=== PATIENT | male | born 1940 | race African-American/Black ===

== ENCOUNTER → 2016-07-18 | Outpatient (CLI) | payer MEDICARE, OTHER ==
[2016-07-18 12:38] LABS: CH 27.8; CHCM 31.3; HDW 2.35; HGB 12.2 gm/dL (13.0-17.5); MCH 27.9 pg (25.0-35.0); MCHC 31.4 g/dL (31.0-37.0); Mean Platelet Volume 7.8; RBC 4.38 m/uL (4.30-5.90); RDW 13.4 % (11.5-15.5); WBC 11.4 k/uL (3.8-10.6)
[2016-07-18 12:57] LABS: Anion Gap 12 mmol/L; Blood Urea Nitrogen 27 mg/dL (9-20); Carbon Dioxide 22 mmol/L (22-30); Chloride 106 mmol/L (98-107); Non-African American GFR(MDRD) 50 (>60 ml/min/1.73 sqM); Sodium 140 mmol/L (137-145)
== END | disposition home or self-care (01) ==
LOC: LABPAT 12:23
PROVIDERS: ATTEND Internal Medicine Interventional Cardiology
DX: Z01.812 Encounter for preprocedural laboratory examination (principal); I50.22 Chronic systolic (congestive) heart failure
CPT/HCPCS: 80051; 82565; 84520; 85027

== ENCOUNTER 2016-07-25 07:14 | Day surgery (SDC) | payer MEDICARE, OTHER ==
[2016-07-23 14:50] VITALS: BMI 44.3
[~2016-07-25 07:14] MED LIST: ALPRAZolam 0.25 MG TAB PO PRN; ALPRAZolam 0.5 MG TAB PO PRN; ASPIRIN 325 MG TAB PO STA; ATORVASTATIN 80 MG TAB PO STA; NITROGLYCERIN SL TABS 0.4 MG TAB SUBLINGUAL PRN; SODIUM CHLORIDE 0.9% 1,000 ML in EMPTY BAG 1 BAG IV ONE
[2016-07-25] MEDS ORDERED: SODIUM CHLORIDE 0.9% 1,000 ML IV ONE (07:45)
[2016-07-25] MEDS ORDERED: LISINOPRIL 20 MG TAB PO STA (08:02)
[2016-07-25] MEDS ORDERED: HYDROCHLOROTHIAZIDE 25 MG TAB PO STA (08:02)
[2016-07-25 08:12] LABS: Glucose,Whole Blood 125 mg/dL (75-99)
[2016-07-25 08:28] LABS: Anion Gap 13 mmol/L; Blood Urea Nitrogen 23 mg/dL (9-20); Calcium 9.3 mg/dL (8.4-10.2); Carbon Dioxide 20 mmol/L (22-30); Chloride 105 mmol/L (98-107); Glucose 136 mg/dL (74-99); Non-African American GFR(MDRD) 52 (>60 ml/min/1.73 sqM); Potassium 4.6 mmol/L (3.5-5.1); Sodium 138 mmol/L (137-145)
[2016-07-25] MEDS ORDERED: fentaNYL (PF) 50 MCG/ML 2 ML AMP ONE (10:48)
[2016-07-25] MEDS ORDERED: MIDAZOLAM 2 MG/2 ML VIAL ONE (10:48)
[2016-07-25] MEDS: BENZOCAINE SPRAY 100 APPLIC/CAN TOPICAL ONE ×2 (11:09→11:15)
[2016-07-25] MEDS ORDERED: MIDAZOLAM 2 MG/2 ML VIAL IVP ONE ×2 (11:16→11:18)
[2016-07-25] MEDS ORDERED: fentaNYL (PF) 50 MCG/ML 2 ML AMP IV ONE (11:16)
[2016-07-25] MEDS ORDERED: LIDOCAINE 2% INJ 20 MG/ML (20 ML MDV) ONE (11:25)
[2016-07-25] MEDS ORDERED: VERAPAMIL 2.5 MG/ML 2 ML AMP ONE (11:34)
[2016-07-25] MEDS ORDERED: HEPARIN SODIUM 1,000 UNIT/ML VIAL ONE (11:51)
[2016-07-25] MEDS ORDERED: LIDOCAINE 2% INJ 20 MG/ML SQ ONE (11:51)
[2016-07-25] MEDS: VERAPAMIL SYRINGE (5 MG/10 ML) INTRAARTER ONE ×2 (11:53→12:12)
[2016-07-25] MEDS ORDERED: HEPARIN SODIUM 1,000 UNIT/ML VIAL IV ONE (11:54)
[2016-07-25] MEDS ORDERED: IOHEXOL 300 MG/ML 100 ML BOTTLE INJ ONE (12:11)
[2016-07-25] MEDS ORDERED: SODIUM CHLORIDE 0.9% 1,000 ML IV SCH (12:15)
[2016-07-25] MEDS ORDERED: RX INFO: IV CONTRAST WAS GIVEN 1 EACH MISC MISCELLANE PRN (12:15)
[2016-07-25 12:56] VITALS: RESP 16
--- NOTE | 2016-07-25 13:31 | ECHOT ---
DATE OF SERVICE: July 25, 2016. Performing physician: Sean Osman M.D., senior corporate recruiter. PROCEDURE PERFORMED: Transesophageal echocardiogram. INDICATION: This is a pleasant 75-year-old gentleman who was complaining of shortness of breath. He was found to have severe cardiomyopathy with evidence of moderate mitral regurgitation. He was admitted to the hospital to undergo a GLORIA and heart catheterization. COMPLICATIONS: None. Level of sedation: Moderate. Length of sedation: 20 minutes. Conscious sedation was performed using 2 mg of Versed on divided doses with sedation length of 20 minutes. PROCEDURE DESCRIPTION: After obtaining an informed consent, explaining the procedure, benefits, risks, complications and alternatives, the patient was brought to the transesophageal echocardiogram suite. A pulse oximetry and heart rate monitors were attached to the patient prior to the procedure. The patient's throat was sprayed using lidocaine locally. Following that, the patient was turned into left lateral position. A bite guard was placed and the patient was then sedated with the above doses of Versed and fentanyl in divided doses. Following that, the transesophageal echocardiogram probe was advanced through the bite guard into the mid esophagus where 2-D echocardiogram images as well as color Doppler images of various cardiac structures were obtained. We evaluated the interatrial septum using 2-D echocardiogram, color Doppler, and contrast study. The procedure was completed. There were no complications. FINDINGS: The left ventricle appeared to be dilated. The left ventricular systolic function is severely impaired with an ejection fraction around 15 to 20% with global hypokinesia. The right ventricle appeared to be dilated as well. The left atrium appeared to be on the upper limits of normal. Left atrial appendage appeared to be free from any thrombus. The interatrial septum appeared to be intact without any evidence of shunt. The aortic valve is trileaflet valve without stenosis with mild insufficiency. The mitral valve seems to be mildly thickened with evidence of moderate MR. CONCLUSION: 1. Severe cardiomyopathy with an ejection fraction of 15 to 20% with global hypokinesia. 2. Trileaflet aortic valve without stenosis with mild insufficiency. 3. Moderate mitral regurgitation with central jet. 4. Normal left atrial appendage. 5. Intact intra-atrial septum. 6. No evidence of pericardial effusion.
[2016-07-25 13:37] LABS: Glucose,Whole Blood 182 mg/dL (75-99)
[2016-07-25] MEDS ORDERED: INSULIN LISPRO (humaLOG) 300 UNIT/3 ML VIAL SQ ONE (13:37)
[2016-07-25 17:01] LABS: Glucose,Whole Blood 91 mg/dL (75-99)
[2016-07-25 17:26] VITALS: BP 135/72; PULSE 67
--- NOTE | 2016-07-26 08:07 | CC ---
DATE OF SERVICE: 07/25/2016 PERFORMING PHYSICIAN: Sean Osman MD, evidence technician. PROCEDURE PERFORMED: Selective right and left coronary angiogram. INDICATION: This is a pleasant 75-year-old gentleman who was found to have severe cardiomyopathy by transthoracic echocardiogram. He was brought today to undergo a heart catheterization and rule out any severe underlying CAD behind the cardiomyopathy. APPROACH: Right radial artery. COMPLICATIONS: None. LEVEL OF SEDATION: Moderate with a sedation length about 30 minutes. PROCEDURE DESCRIPTION: After obtaining informed consent, the patient was brought to the cardiac malthouse laborer. The right radial artery was cannulated using micropuncture technique. The micropuncture wire passed easily then I placed a 6 Azeri sheath in the right radial artery. After that I give the patient 5000 units of heparin IV and 2 mg of verapamil IA. I did selective right and left coronary angiogram using JR4 guiding catheter for the right coronary system because of the severe tortuosity I had to use a JR4 guide to transmit my ( ). For the left coronary system I used JL 3.5 catheters. The procedure was completed without any complication. SELECTIVE CORONARY ANGIOGRAM: 1. The right coronary artery is a large-caliber vessel and it is a dominant vessel. It is angiographically normal. The flow in the RCA is AKIL 2 flow. 2. The left main is angiographically normal. It bifurcates into the left circumflex, ramus intermedius, and left anterior descending artery. 3. The left circumflex is a large-caliber vessel and it is a nondominant vessel. It is angiographically normal as well. 4. The ramus intermedius is angiographically normal. 5. Left anterior descending artery is also angiographically normal and in the proximal portion gives rise into the first diagonal branch, which appeared to be angiographically normal. CONCLUSION: 1. Normal coronary angiogram. 2. AKIL 2 flow in the right and left coronary system. POSTPROCEDURE MANAGEMENT: 1. Maximize medical treatment. 2. Follow up with the patient.
--- NOTE | 2016-07-26 08:15 | LTR ---
July 25, 2016 RE: Pedro Gaviria Dear Dr. Morgan: Mr. Pedro Gaviria underwent a heart catheterization which showed normal coronary angiogram. For his cardiomyopathy, I will consider maximize medical treatment and repeat the echocardiogram down the line. I want to thank you for allowing me to participate in his care and please do not hesitate to call if you have any questions or concerns. Sincerely, SARIAH TREVINO MD
== END 2016-07-25 17:26 | disposition home or self-care (01) ==
LOC: CATHCVL 07:14
PROVIDERS: ATTEND Internal Medicine Interventional Cardiology
DX: I08.0 Rheumatic disorders of both mitral and aortic valves (principal); I42.9 Cardiomyopathy, unspecified; I77.1 Stricture of artery; I10 Essential (primary) hypertension; E78.5 Hyperlipidemia, unspecified; E66.3 Overweight; Z68.41 Body mass index [BMI] 40.0-44.9, adult; Z87.891 Personal history of nicotine dependence; E11.9 Type 2 diabetes mellitus without complications; Z79.4 Long term (current) use of insulin; Z79.84 Long term (current) use of oral hypoglycemic drugs; Z79.899 Other long term (current) drug therapy
CPT/HCPCS: 93312; 93320; 93325; 93454; 80048; 99152; 99153 ×3; C1769; C1887; C1894; J2001; J2250; J3010; J1644; Q9967

== ENCOUNTER 2017-02-09 09:47 | Day surgery (SDC) | payer MEDICARE, OTHER ==
[2017-02-05 15:37] VITALS: BMI 42.5
[~2017-02-09 09:47] MED LIST changes: -ALPRAZolam 0.25 MG TAB PO PRN; -ALPRAZolam 0.5 MG TAB PO PRN; -ASPIRIN 325 MG TAB PO STA; -ATORVASTATIN 80 MG TAB PO STA; +LACTATED RINGERS 1,000 ML IV SCH; -NITROGLYCERIN SL TABS 0.4 MG TAB SUBLINGUAL PRN; +SODIUM CHLORIDE 0.9% 1,000 ML IV SCH; -SODIUM CHLORIDE 0.9% 1,000 ML in EMPTY BAG 1 BAG IV ONE; +ceFAZolin 1,000 MG in SODIUM CHLORIDE 0.9% IRRIGATIO 250 ML IRRIGATION ONE; +ceFAZolin 2 GM in SODIUM CHLORIDE 0.9% 100 ML IVPB ONE
[2017-02-09 11:03] LABS: Glucose,Whole Blood 133 mg/dL (75-99)
[2017-02-09 11:18] LABS: Basophils % (A) 1 %; Eosinophils # (A) 0.2 k/uL (0-0.7); Eosinophils % (A) 3 %; HCT 40.5 % (39.0-53.0); HGB 12.9 gm/dL (13.0-17.5); Hypochromasia Slight; Luc # (Auto) 0.12; Luc % (Auto) 2; Lymphocytes # (A) 1.8 k/uL (1.0-4.8); Lymphocytes % (A) 25 %; MCH 27.9 pg (25.0-35.0); MCHC 31.9 g/dL (31.0-37.0); MCV 87.5 fL (80.0-100.0); Mean Platelet Volume 7.2; Monocytes # (A) 0.5 k/uL (0-1.0); Monocytes % (A) 7 %; Neutrophils # (A) 4.7 k/uL (1.3-7.7); Neutrophils % (A) 63 %; RBC 4.63 m/uL (4.30-5.90); RDW 13.1 % (11.5-15.5); WBC 7.4 k/uL (3.8-10.6); WBC (Perox) 7.53
[2017-02-09] MEDS ORDERED: SODIUM CHLORIDE 0.9% 1,000 ML IV ONE (11:27)
[2017-02-09] MEDS ORDERED: MIDAZOLAM 2 MG/2 ML VIAL ONE (12:53)
[2017-02-09] MEDS ORDERED: KETAMINE 10 MG/ML 20 ML VIAL ONE (12:53)
[2017-02-09] MEDS ORDERED: LIDOCAINE 1% INJ 10MG/ML (20 ML MDV) ONE (12:53)
[2017-02-09] MEDS ORDERED: PROPOFOL 10 MG/ML 20 ML VIAL IV ONE (12:53)
[2017-02-09] MEDS ORDERED: fentaNYL (PF) 50 MCG/ML 2 ML AMP ONE (12:53)
[2017-02-09] MEDS ORDERED: PHENYLEPHRINE-0.9% NACL SYG 1 MG/10 ML SYRINGE ONE (12:53)
[2017-02-09] MEDS ORDERED: IOHEXOL 350 MG/ML 50ML BOTTLE INJ ONE (13:08)
[2017-02-09] MEDS ORDERED: LIDOCAINE 1% (PF) 10MG/ML VIAL SQ ONE (13:40)
[2017-02-09 15:01] LABS: Glucose,Whole Blood 97 mg/dL (75-99)
[2017-02-09 15:02] VITALS: RESP 18
[2017-02-09 15:02] LABS: Anion Gap 11 mmol/L; Blood Urea Nitrogen 22 mg/dL (9-20); Calcium 9.4 mg/dL (8.4-10.2); Carbon Dioxide 19 mmol/L (22-30); Chloride 107 mmol/L (98-107); Glucose 137 mg/dL (74-99); Non-African American GFR(MDRD) >60 (>60 ml/min/1.73 sqM); Potassium 4.8 mmol/L (3.5-5.1); Sodium 137 mmol/L (137-145)
[2017-02-09] MEDS ORDERED: ACETAMINOPHEN TAB 325 MG TAB PO PRN (15:02)
[2017-02-09] MEDS ORDERED: ACETAMINOPHEN IV (For NPO) 1,000 MG in EMPTY BAG 1 BAG IVPB ONE (15:02)
--- NOTE | 2017-02-09 15:36 | LTR ---
DATE OF SERVICE: 02/09/2017 RE: Pedro Gaviria Dear Srinath; I had the pleasure of seeing Mr. Pedro Gaviria in electrophysiology followup. As you know, Mr. Gaviria has severe cardiomyopathy that has not shown any improvement in the last 6 months, despite appropriate medical treatment. He underwent a single-chamber ICD implantation successfully. I will maximize his beta blockers and increase them to 50 mg twice daily, preferably metoprolol succinate 50 mg p.o. daily. He will continue to follow up with you as scheduled and we will see him again in the Device Clinic in about 5 days. Thank you for entrusting me with the care of your patient. Warm regards. Sincerely, MD HILDA Way / ALVA: [id number] /
--- NOTE | 2017-02-09 15:36 | PN ---
PROGRESS NOTE A 76-year-old male patient with severe nonischemic cardiomyopathy with class 2 heart failure symptoms with no improvement with medical treatment over 6 months. He is brought in for an ICD implantation. The patient is brought to the EP lab in a fasting state. Written informed consent was obtained prior to the procedure. The left shoulder area was prepped and draped as per protocol. 1% lidocaine was used for local anesthesia. A 4 cm incision was made parallel to the deltopectoral groove. A 1.5 cm medial to the incision was carried down to the level of the pectoralis muscle. A subfascial pocket was made, hemostasis was assured. The left axillary vein was accessed with a single point line, appropriately-sized introducer sheath, a [employer] lead was positioned in the right heart. This was an [employer] [place] SG model #0293, serial #[id number]. This is positioned in the low RV septum. R-waves 12.2 mV, pacing threshold 1 V at 0.4 ms. Pacing impedance of 744 ohms. 10 V test is negative. The lead was secured to the underlying pectoralis fascia using 2 nonabsorbable sutures. Pocket was irrigated with antibiotic solution. Lead was connected to the generator ([employer] ICD VR model #D140, serial #[id number]). Lead and the generator were then placed in the subfascial pocket and the wound was closed in 3 layers and dressed per protocol. In view of his cardiomyopathy and heart failure status, DFT testing was deferred. Patient tolerated procedure well without any acute complications. PLAN: Further maximization of cardiomyopathy, medications and beta blockers and DFT testing in 3 months. MMODL / IJN: [id number] /
[2017-02-09 17:08] LABS: Glucose,Whole Blood 111 mg/dL (75-99)
[2017-02-09] MEDS: CARVEDILOL 3.125 MG TAB PO SCH (17:13)
[2017-02-09] MEDS ORDERED: INSULIN LISPRO (humaLOG) 300 UNIT/3 ML VIAL SQ SCH (17:30)
[2017-02-09 20:12] LABS: Glucose,Whole Blood 167 mg/dL (75-99)
[2017-02-09] MEDS: ceFAZolin 2 GM in SODIUM CHLORIDE 0.9% 100 ML IVPB SCH (20:49)
[2017-02-09] MEDS: HYDROcodone/APAP 5-325MG 1 EACH TAB PO PRN (20:53)
[2017-02-09] MEDS ORDERED: INSULIN DETEMIR 100 UNIT/ML 10 ML VIAL SQ SCH (21:00)
[2017-02-09] MEDS ORDERED: ATORVASTATIN 20 MG TAB PO SCH (21:00)
[2017-02-10] MEDS: ceFAZolin 2 GM in SODIUM CHLORIDE 0.9% 100 ML IVPB SCH ×3 (01:35→13:50)
--- NOTE | 2017-02-10 06:35 | XR ---
EXAMINATION TYPE: XR chest 2V DATE OF EXAM: 02/10/2017 COMPARISON: NONE HISTORY: Arrhythmia status post pacemaker placement. TECHNIQUE: Frontal and lateral views of the chest are obtained. FINDINGS: There is no focal air space opacity, pleural effusion, or pneumothorax seen. The cardiac silhouette size is mildly enlarged. Lateral view is suboptimal due to overlying upper extremity. The re is single lead pacemaker/AICD, lead is likely within right ventricle but this is difficult to conf irm due to motion and overlying upper extremity on lateral view. The osseous structures are intact. IMPRESSION: Mild cardiomegaly without acute pulmonary process. Single-lead pacemaker/AICD with suspe cted lead in right ventricle. No evidence of complication related to pacemaker placement.
[2017-02-10 07:08] LABS: Glucose,Whole Blood 122 mg/dL (75-99)
[2017-02-10] MEDS ORDERED: INSULIN LISPRO (humaLOG) 300 UNIT/3 ML VIAL SQ SCH ×2 (07:30→12:30)
[2017-02-10] MEDS: CARVEDILOL 3.125 MG TAB PO SCH (08:14)
--- NOTE | 2017-02-10 08:18 | P.DS ---
Providers Attending physician: Cliff Cantu Primary care physician: Srinath [facility] Course: 76-year-old male patient who underwent single chamber ICD for severe nonischemic cardio myopathy with class II heart failure symptoms and left ejection fraction at 20% despite medical treatment for 6 months he is on by Maria L to medical treatment. He underwent successful ICD implantation single- chamber Patient is doing well. Afebrile no chest pain no dizziness lightheadedness ICD site is healed well no hematoma Vitals are stable. Heart rates are normal. No arrhythmias on telemetry. Heart sounds S1 and S2 are normal no murmurs or gallops. Lungs are clear on auscultation no rhonchi no crackles. Abdomen soft nontender. Central obesity. No lower extremity edema Chest x-ray is within normal limits. Thyromegaly is chronic Impression Severe nonischemic cardiopathy Persistent systolic dysfunction/current myopathy ejection fraction 20% despite medical treatment for at least 6 months Normal coronary arteries Diabetes type 2 Hypertension dyslipidemia Plan Discharge home after IV antibiotics. Stop amlodipine, stop metoprolol tartrate Start Coreg 3.125 g twice daily Lisinopril 20 mg daily Spironolactone 25 mg by mouth daily continue statins Follow-up in the device clinic in 5 days and follow with Dr. Longoria as scheduled Patient Condition at Discharge: Stable Plan - Discharge Summary New Discharge Prescriptions: No Action Tamsulosin HCl [Flomax] 0.4 mg PO HS Lisinopril [Zestril] 30 mg PO DAILY Atorvastatin Calcium [Lipitor] 20 mg PO HS Insulin Detemir [Levemir Flextouch] 95 unit SQ HS Insulin Aspart [NovoLOG] 25 unit SQ AC-SUPPER Insulin Aspart [NovoLOG] 20 unit SQ AC-LUNCH Insulin Aspart [NovoLOG] 10 unit SQ AC-BRKFST amLODIPine [Norvasc] 5 mg PO HS Discharge Medication List Atorvastatin Calcium [Lipitor] 20 mg PO HS 07/23/16 [History] Insulin Aspart [NovoLOG] 10 unit SQ AC-BRKFST 07/23/16 [History] Insulin Aspart [NovoLOG] 20 unit SQ AC-LUNCH 07/23/16 [History] Insulin Aspart [NovoLOG] 25 unit SQ AC-SUPPER 07/23/16 [History] Insulin Detemir [Levemir Flextouch] 95 unit SQ HS 07/23/16 [History] Lisinopril [Zestril] 30 mg PO DAILY 07/23/16 [History] Tamsulosin HCl [Flomax] 0.4 mg PO HS 07/23/16 [History] amLODIPine [Norvasc] 5 mg PO HS 02/05/17 [History]
[2017-02-10] MEDS: HYDROcodone/APAP 5-325MG 1 EACH TAB PO PRN (08:22)
[2017-02-10] MEDS ORDERED: SPIRONOLACTONE 25 MG TAB PO SCH (09:00)
[2017-02-10] MEDS ORDERED: LISINOPRIL 10 MG TAB PO SCH (09:00)
[2017-02-10 12:01] LABS: Glucose,Whole Blood 101 mg/dL (75-99)
[2017-02-10 12:39] VITALS: BP 117/67; PULSE 57; TEMP 97.8
== END 2017-02-10 15:45 | disposition home or self-care (01) ==
LOC: CATHEP 09:47 → 3OBS 14:18 → CATHEP 02-10 15:45
PROVIDERS: ATTEND Internal Medicine Clinical Cardiac Electrophysiology
DX: I42.8 Other cardiomyopathies (principal); Z00.6 Encounter for examination for normal comparison and control in clinical research program; I11.0 Hypertensive heart disease with heart failure; I50.22 Chronic systolic (congestive) heart failure; E11.9 Type 2 diabetes mellitus without complications; Z79.4 Long term (current) use of insulin; E66.3 Overweight; Z68.41 Body mass index [BMI] 40.0-44.9, adult; Z87.891 Personal history of nicotine dependence; E78.5 Hyperlipidemia, unspecified; Z79.899 Other long term (current) drug therapy
CPT/HCPCS: 33249; 80048; 85025; 71020; C1892; C1769; C1777; C1722; J2250; J0690 ×3; J2001 ×2; J3010; J0131; J2370; J2704; Q9967

== ENCOUNTER → 2017-05-06 | Outpatient (CLI) | payer MEDICARE, OTHER ==
[2017-05-06 15:03] LABS: Anion Gap 11 mmol/L; Blood Urea Nitrogen 21 mg/dL (9-20); Calcium 9.4 mg/dL (8.4-10.2); Carbon Dioxide 25 mmol/L (22-30); Chloride 101 mmol/L (98-107); Glucose 211 mg/dL (74-99); Potassium 4.3 mmol/L (3.5-5.1); Sodium 137 mmol/L (137-145)
[2017-05-06 15:17] LABS: HGB 12.1 gm/dL (13.0-17.5); Hypochromasia Slight; MCH 27.5 pg (25.0-35.0); MCV 88.9 fL (80.0-100.0); Mean Platelet Volume 7.6; Platelet Count 266 k/uL (150-450); RBC 4.39 m/uL (4.30-5.90); RDW 13.3 % (11.5-15.5); WBC 9.7 k/uL (3.8-10.6)
== END | disposition home or self-care (01) ==
LOC: LABWHC1 14:30
PROVIDERS: ATTEND Internal Medicine Clinical Cardiac Electrophysiology
DX: I42.8 Other cardiomyopathies (principal); I50.22 Chronic systolic (congestive) heart failure
CPT/HCPCS: 36415; 80048; 85027

== ENCOUNTER → 2017-05-14 | Day surgery (SDC) | payer MEDICARE, OTHER ==
[2017-05-06 23:10] VITALS: BMI 43.0
[~2017-05-14] MED LIST changes: +FUROSEMIDE 10 MG/ML 4 ML VIAL IV ONE; -LACTATED RINGERS 1,000 ML IV SCH; +LIDOCAINE 1% INJ 10MG/ML (20 ML MDV) ONE; +PROPOFOL 10 MG/ML 20 ML VIAL IV ONE; -ceFAZolin 1,000 MG in SODIUM CHLORIDE 0.9% IRRIGATIO 250 ML IRRIGATION ONE; -ceFAZolin 2 GM in SODIUM CHLORIDE 0.9% 100 ML IVPB ONE
[2017-05-14 06:41] VITALS: TEMP 98
[2017-05-14 06:42] LABS: Glucose,Whole Blood 126 mg/dL (75-99)
[2017-05-14 08:33] VITALS: RESP 14
--- NOTE | 2017-05-14 09:22 | CE ---
CARDIAC ELECTROPHYSIOLOGY REPORT Mr. Gaviria is a 76-year-old male patient of Dr. Osman who has severe nonischemic cardiomyopathy and class 2 to 3 congestive heart failure who is brought in for DFT testing. He had [employer] single-chamber ICD implanted previously. The device was interrogated. This [employer] Energen ICD, D 140, serial #[id number]. The R-waves were 21 mV, pacing impedance 569 ohms, pacing threshold 0.8 V at 0.4 milliseconds. High-voltage shock impedance 63 ohms. DFT level testing was performed under conscious sedation. Initially the testing was performed in normal polarity and an 11-joule shock followed by a 21-joule shock failed to defibrillate the patient, and he was shocked externally and successfully. There were at least 3 to 4 drop outs for each of the events. After waiting for his blood pressure to normalize, this was repeated in reverse polarity. In reverse polarity, once again, a 21-joule shock was unsuccessful. Charge time 3.6 seconds, shock impedance 59 ohms. Following that, a 31-joule shock was successful. Total charge time 5.4 seconds. Shock impedance 59 ohms. The device was then programmed to in reverse polarity, MADIT-RIT programming was programmed with appropriate antitachycardia pacing, cardioversion and defibrillation. First cardioversion 21 joules, first defibrillation 41 joules, SRD was turned off for VT and VF. Sensitivity reprogrammed to normal 0.4 mV. He had about 3 drop outs for each session once again. RESULT: 1. Elevated DFT at 31 joules in reverse polarity. 2. Severe nonischemic cardiomyopathy. 3. Class 3 congestive heart failure. SUGGEST: Add Lasix 40 mg p.o. daily and maximize heart failure medications. Follow up with Dr. Osman in 2 weeks. MMODL / IJN: [id number] /
[2017-05-14 11:32] VITALS: PULSE 76
[2017-05-14 11:34] VITALS: BP 168/67
== END | disposition home or self-care (01) ==
LOC: CATHEP 06:04
PROVIDERS: ATTEND Internal Medicine Clinical Cardiac Electrophysiology
DX: Z45.02 Encounter for adjustment and management of automatic implantable cardiac defibrillator (principal); I11.0 Hypertensive heart disease with heart failure; I50.9 Heart failure, unspecified; I42.9 Cardiomyopathy, unspecified; E11.9 Type 2 diabetes mellitus without complications; E78.5 Hyperlipidemia, unspecified; E66.3 Overweight; Z68.41 Body mass index [BMI] 40.0-44.9, adult; R06.00 Dyspnea, unspecified; I20.9 Angina pectoris, unspecified; Z87.891 Personal history of nicotine dependence; Z79.4 Long term (current) use of insulin; Z79.899 Other long term (current) drug therapy
CPT/HCPCS: 93642; J1940; J2001; J2704

== ENCOUNTER → 2017-09-11 | Outpatient (CLI) | payer MEDICARE, OTHER ==
[2017-09-11 07:48] LABS: Cholesterol 181 mg/dL (<200); HDL Cholesterol 45 mg/dL (40-60); LDL Cholesterol,Calculated 117 mg/dL (0-99); Triglycerides 94 mg/dL (<150)
== END | disposition home or self-care (01) ==
LOC: LABWHC1 06:46
PROVIDERS: ATTEND Nurse Practitioner Adult Health
DX: E78.5 Hyperlipidemia, unspecified (principal)
CPT/HCPCS: 36415; 80061

== ENCOUNTER → 2017-12-25 | Outpatient (CLI) | payer MEDICARE, OTHER ==
--- NOTE | 2017-12-25 15:04 | XR ---
EXAMINATION TYPE: XR lumbar spine 2 or 3V DATE OF EXAM: 12/25/2017 CLINICAL HISTORY: pain TECHNIQUE: Three views of the lumbar spine are submitted. COMPARISON: None. FINDINGS: There are 5 lumbar type vertebral bodies identified. The lumbar spine shows satisfactory alignment w ithout evidence of acute fracture or dislocation. Vertebral body heights are within normal limits. Moderate degenerative disc space narrowing and spondylosis lower lumbar spine at L4-5 and L5-S1. Face t joint noted. The overlying soft tissue appears unremarkable. IMPRESSION: No acute fracture or dislocation is seen in the lumbar spine. ICD 10 NO FRACTURE, INITIAL EVALUATION
== END | disposition home or self-care (01) ==
LOC: RADXRMAIN 14:13
PROVIDERS: ATTEND Family Medicine
DX: M48.00 Spinal stenosis, site unspecified (principal)
CPT/HCPCS: 72100

== ENCOUNTER → 2018-06-07 | Outpatient (CLI) | payer MEDICARE, OTHER ==
--- NOTE | 2018-06-07 14:03 | CT ---
EXAMINATION TYPE: CT lumbar spine wo con DATE OF EXAM: 06/07/2018 12:28 PM COMPARISON: X-ray 12/25/2017 HISTORY: Low back pain. CT DLP: 2760.2 mGycm Automated exposure control for dose reduction was used. Unenhanced CT of the lumbar spine was performed. Bone and soft tissue window settings are submitted as well as coronal and sagittal reconstructions. Metallic densities seen within the bowel in the righ t abdomen on axial image 55 is nonspecific. Atherosclerotic change of the aorta. Pleural-based thicke jarrett or tiny effusion along the right lung base noted. L1-L2: Facet arthropathy. Circumferential disc bulging. No significant foraminal encroachment. No obv ious central disc herniation. L2-L3: Facet arthropathy and diffuse disc bulging greater paracentrally the right. Findings are sugge stive of canal stenosis with bilateral foraminal encroachment. L3-L4: There is apparent postsurgical change with suspected laminectomy. There is marked hypertrophy of the facets and diffuse disc bulging and suspected canal stenosis. MRI would be required for furthe r evaluation. L4-L5: Facet arthropathy with broad-based disc protrusion and hypertrophic changes. Advanced facet ar thropathy noted. There is central stenosis and bilateral foraminal encroachment. L5-S1: Degenerative disc disease with vacuum disc compatible severe degenerative disc disease. Broad- based disc bulging with facet arthropathy noted. Foraminal encroachment and central stenosis suspecte d. IMPRESSION: 1. Limited assessment spinal canal due to resolution and artifact demonstrates multilevel suspected c anal stenosis most marked findings at L3-4 and L4-L5. 2. Multilevel of foraminal encroachment and degenerative disc disease. 3. Postsurgical changes as noted above. 4. Follow-up MRI is recommended given the limitation of the exam to assess for degree of Canal stenos is and foraminal encroachment.
== END | disposition home or self-care (01) ==
LOC: RADCTMAIN 11:53
PROVIDERS: ATTEND Family Medicine
DX: M51.36 Other intervertebral disc degeneration, lumbar region (principal); Z98.890 Other specified postprocedural states
CPT/HCPCS: 72131

== ENCOUNTER → 2019-01-21 | Outpatient (CLI) | payer MEDICARE, OTHER ==
[2019-01-21 11:17] LABS: African American GFR (CKD) 47.8 (60.0-200.0); BUN/Creat Ratio 18.13 Ratio (12.00-20.00); Potassium 4.3 mmol/L (3.5-5.5)
== END | disposition home or self-care (01) ==
LOC: LABWHC1 07:09
PROVIDERS: ATTEND Nurse Practitioner Adult Health
DX: I10 Essential (primary) hypertension (principal)
CPT/HCPCS: 36415; 80048; 83735; 84443

== ENCOUNTER → 2019-01-21 | Outpatient (CLI) | payer MEDICARE, OTHER ==
--- NOTE | 2019-01-21 09:36 | US ---
EXAMINATION TYPE: US duplex aorta DATE OF EXAM: 01/21/2019 COMPARISON: NONE CLINICAL HISTORY: Z13.6 screening for cardiovascular disorders. EXAM MEASUREMENTS: Abdominal Aorta: Proximal: 2.4cm Mid: 2.3cm Distal: 2.0cm Bifurcation: obscured by overlying bowel gas Patient of large body habitus with very large abdomen. IMPRESSION: No evidence for abdominal aortic aneurysm.
== END | disposition home or self-care (01) ==
LOC: RADUSWWP 07:21
PROVIDERS: ATTEND Physician Assistant
DX: Z13.6 Encounter for screening for cardiovascular disorders (principal)
CPT/HCPCS: 93979

== ENCOUNTER → 2019-02-25 | Outpatient (CLI) | payer MEDICARE, OTHER ==
[2019-02-25 09:33] LABS: Calcium 9.3 mg/dL (8.4-10.2); Potassium 4.8 mmol/L (3.5-5.1)
== END | disposition home or self-care (01) ==
LOC: LABPAT 08:07
PROVIDERS: ATTEND Internal Medicine Clinical Cardiac Electrophysiology
DX: Z01.812 Encounter for preprocedural laboratory examination (principal); I42.8 Other cardiomyopathies; E78.5 Hyperlipidemia, unspecified
CPT/HCPCS: 36415; 80048

== ENCOUNTER 2019-03-01 10:38 | Day surgery (SDC) | payer MEDICARE, OTHER ==
[2019-02-25 11:45] VITALS: BMI 40.2
[~2019-03-01 10:38] MED LIST changes: -FUROSEMIDE 10 MG/ML 4 ML VIAL IV ONE; -LIDOCAINE 1% INJ 10MG/ML (20 ML MDV) ONE; -PROPOFOL 10 MG/ML 20 ML VIAL IV ONE
[2019-03-01 11:16] VITALS: RESP 16; TEMP 98.2
[2019-03-01] MEDS ORDERED: CARVEDILOL 3.125 MG TAB PO STA (11:25)
[2019-03-01 11:54] LABS: Glucose,Whole Blood 94 mg/dL (75-99)
[2019-03-01 11:55] LABS: Basophils # (A) 0.1 k/uL (0-0.2); Basophils % (A) 1 %; Eosinophils # (A) 0.3 k/uL (0-0.7); Eosinophils % (A) 4 %; HCT 40.6 % (39.0-53.0); HGB 13.2 gm/dL (13.0-17.5); Lymphocytes # (A) 1.8 k/uL (1.0-4.8); Lymphocytes % (A) 22 %; MCH 27.7 pg (25.0-35.0); MCHC 32.5 g/dL (31.0-37.0); MCV 85.4 fL (80.0-100.0); Monocytes # (A) 0.5 k/uL (0-1.0); Monocytes % (A) 6 %; Neutrophils # (A) 5.2 k/uL (1.3-7.7); Neutrophils % (A) 65 %; Platelet Count 271 k/uL (150-450); RBC 4.76 m/uL (4.30-5.90)
[2019-03-01] MEDS ORDERED: PROPOFOL 10 MG/ML 20 ML VIAL IV ONE (12:06)
[2019-03-01] MEDS ORDERED: MIDAZOLAM 2 MG/2 ML VIAL ONE (12:06)
[2019-03-01] MEDS ORDERED: fentaNYL (PF) 50 MCG/ML 2 ML AMP ONE (12:06)
[2019-03-01] MEDS ORDERED: IOPAMIDOL-250 50ML BTL IV ONE (13:12)
--- NOTE | 2019-03-01 13:17 | P.PCN ---
Preoperative Diagnosis: Preoperative diagnosis: Nonischemic cardiomyopathy status post single ICD, [employer], frequent PVCs, nonsustained ventricular tachycardia with similar intracardiac morphology as PVCs Patient was brought to the lab in a fasting state, written informed consent was obtained prior to the procedure Procedure performed under conscious sedation by anesthesia Non-invasive program stimulation performed via his single-chamber ICD Baseline QRS with 157 ms, left bundle branch block, RI interval 202 ms VERP at 550/290/250 400/270/200 400/600/290 Only PVCs were induced, no nonsustained ventricular tachycardia was induced Patient had frequent PVCs throughout the procedure, predominantly 1 morphology, right bundle branch block morphology, deep S waves in lead 1 Suggest Consider PVC ablation after heart failure management
--- NOTE | 2019-03-01 13:31 | P.PCN ---
Preoperative Diagnosis: Diagnosis: Nonischemic cardiomyopathy, EF less than 20%, high DFTs in the past, 31 J for reverse polarity Single-chamber ICD was interrogated, [employer] R waves were 23.5 mV Pacing impedance 619 ohms, pacing threshold 0.7 V at 0.4 ms Shock impedance 64 ohms DFT testing under anesthesia Shock on T-wave protocol used, Induced ventricular fibrillation Family and appropriately detected at least sensitivity Unsuccessful at internal defibrillation at 26 joules and 31 J at reversed polarity for the first failed shock, of 26 joules, charge time was 5.1 seconds, shock impedance 61 ohms For the failed shock of 31 J, the charge time was 5.5 seconds and the shock impedance was 61 ohms Successful external defibrillation to sinus rhythm After waiting 4 minutes, repeat DFT testing performed under anesthesia VF induced with shock on T-wave protocol again Adequately and appropriately detected at least sensitivity without any dropout Defibrillated with a 31 J shock, type II conversion, initial polarity used for the 31 J shock, charge time was 5.7 seconds and shock impedance was 59 ohms Device then reprogrammed to MADIT RIT programming VT detection only 40 seconds fast VT detection 10 seconds VF detection 1.5 seconds Suggest In view of his heart failure status, left bundle branch block pattern, QRS width 157 ms and high DFTs, would recommend upgrade to biventricular ICD Next procedure: Left upper extremity venogram 15 mL of dye was injected in the left upper extremity, widely patent left axillary and subclavian veins
--- NOTE | 2019-03-01 13:59 | P.PCN ---
Preoperative Diagnosis: Cinefluoroscopy single chamber ICD lead Single coil ICD lead implanted in the RV apex No fractures or breaks noted from fluoroscopy Lead in good position the RV apex
--- NOTE | 2019-03-01 14:06 | P.HPCAR ---
History of Present Illness This is Georgia Kimball PA-C dictating a consult in H&P this patient The patient was interviewed and examined by me as well as by Dr. Cantu Case discussed with Dr. Cantu and he agrees with the plan of care IMPRESSION / ASSESSMENT: Severe nonischemic cardiomyopathy status post single-chamber ICD placement with history of high DFTs in the past History of nonsustained ventricular tachycardia Frequent PVCs with morphology resembling his previous runs of nonsustained ventricular tachycardia Hypertension Dyslipidemia Diabetes PLAN: Proceed with NIPS to evaluate for inducible ventricular tachycardia resembling PVCs Repeat DFT testing HPI Patient is a 78-year-old male with a past medical history significant for hyper tension, severe nonischemic cardiomyopathy status post single-chamber ICD placement, dyslipidemia, diabetes who presented for evaluation and management of PVCs and cardiomyopathy. Patient has had a history of high DFTs in the past as well as nonsustained ventricular tachycardia. He has had frequent PVCs with morphology resembling the nonsustained ventricular tachycardia. Most recent echo showed EF 20%. Patient seen and examined resting in bed. He remains short of breath on exertion. Endorses 2 pillow orthopnea. No chest pain or palpitations. No recent infections. ROS: No fevers, chills or rigors, no cough, phlegm or expectoration, no nausea, vomiting or diarrhea, no hematuria, dysuria, no musculoskeletal complaints, no strokes or seizures, no skin lesions. EXAMINATION: Temperature is 98.2F, pulse 87, respiration 16, blood pressure 137/87, oxygen saturation 98% on room air Lungs mildly diminished with few scattered crackles at the bases Heart is regular, systolic murmur noted No elevated JVD No lower extremity edema Abdomen soft and nontender to palpation REVIEW OF LABS, ECG & MEDICAL DATA WBC 8.0, hemoglobin 13.2, platelets 271 Physical Exam Vitals: Vital Signs Temp Pulse Resp BP Pulse Ox 03/01/19 13:35 65 16 155/73 96 03/01/19 13:20 64 16 134/63 95 03/01/19 11:14 98.2 F 87 16 137/87 98 Intake and Output 02/28/19 03/01/19 03/01/19 22:59 06:59 14:59 Intake Total 300 Balance 300 Intake: IV 300 Sodium Chloride 0.9% 1, 0 000 ml @ 20 mls/hr IV . Q24H [facility] Rx#:[id number] Other: Weight 136.2 kg Past Medical History Past Medical History: Diabetes Mellitus, Hyperlipidemia, Hypertension, Prostate Disorder Additional Past Medical History / Comment(s): SEE DR CANTU H&P History of Any Multi-Drug Resistant Organisms: None Reported Past Surgical History: AICD, Back Surgery Additional Past Surgical History / Comment(s): ANGIOGRAM Past Anesthesia/Blood Transfusion Reactions: No Reported Reaction Type of Cardiac Device: AICD Device Placement Date:: 02/09/2017 Smoking Status: Former smoker - Past Family History Mother Family Medical History: No Reported History Father Family Medical History: No Reported History Brother(s) Family Medical History: Deep Vein Thrombosis (DVT) Physical Examination Vital Signs Temp Pulse Resp BP Pulse Ox 03/01/19 13:35 65 16 155/73 96 03/01/19 13:20 64 16 134/63 95 03/01/19 11:14 98.2 F 87 16 137/87 98 Intake and Output 02/28/19 03/01/19 03/01/19 22:59 06:59 14:59 Intake Total 300 Balance 300 Intake: IV 300 Sodium Chloride 0.9% 1, 0 000 ml @ 20 mls/hr IV . Q24H [facility] Rx#:[id number] Other: Weight 136.2 kg Results 03/01/19 11:33 CBC 03/01/19 Range/Units 11:33 WBC 8.0 (3.8-10.6) k/uL RBC 4.76 (4.30-5.90) m/uL Hgb 13.2 (13.0-17.5) gm/dL Hct 40.6 (39.0-53.0) % Plt Count 271 (150-450) k/uL Current Medications Generic Name Dose Route Start Last Admin Trade Name Freq PRN Reason Stop Dose Admin Sodium Chloride 1,000 mls @ 20 mls/hr 03/01/19 05:57 03/01/19 11:13 Saline 0.9% IV 300 mls .Q24H [facility] Administration Intake and Output 02/28/19 03/01/19 03/01/19 22:59 06:59 14:59 Intake Total 300 Balance 300 Intake: IV 300 Sodium Chloride 0.9% 1, 0 000 ml @ 20 mls/hr IV . Q24H [facility] Rx#:[id number] Other: Weight 136.2 kg Patient Weight 03/02/19 06:59 Weight 136.2 kg 03/01/19 11:33
[2019-03-01 15:13] VITALS: BP 143/70; PULSE 72
== END 2019-03-01 15:37 | disposition home or self-care (01) ==
LOC: CATHEP 10:38
PROVIDERS: ATTEND Internal Medicine Clinical Cardiac Electrophysiology
DX: Z45.02 Encounter for adjustment and management of automatic implantable cardiac defibrillator (principal); I42.8 Other cardiomyopathies; I11.0 Hypertensive heart disease with heart failure; I50.22 Chronic systolic (congestive) heart failure; I50.84 End stage heart failure; E11.9 Type 2 diabetes mellitus without complications; I49.3 Ventricular premature depolarization; E66.9 Obesity, unspecified; Z68.39 Body mass index [BMI] 39.0-39.9, adult; Z87.891 Personal history of nicotine dependence; Z97.2 Presence of dental prosthetic device (complete) (partial); Z85.46 Personal history of malignant neoplasm of prostate; Z79.82 Long term (current) use of aspirin; Z79.4 Long term (current) use of insulin; Z79.899 Other long term (current) drug therapy
CPT/HCPCS: 93642; 85025; J2250; J3010; J2704; Q9966

== ENCOUNTER 2019-03-14 07:33 | Day surgery (SDC) | payer MEDICARE, OTHER ==
[2019-03-11 10:36] VITALS: BMI 39.5
[~2019-03-14 07:33] MED LIST changes: +LIDOCAINE 1% 20 ML VIAL (10MG/ML) FOR IV START INTRADERMA PRN; -SODIUM CHLORIDE 0.9% 1,000 ML IV SCH; +ceFAZolin 1,000 MG in SODIUM CHLORIDE 0.9% IRRIGATIO 250 ML IRRIGATION ONE
[2019-03-14 07:57] LABS: Glucose,Whole Blood 74 mg/dL (75-99)
[2019-03-14] MEDS: FUROSEMIDE 100 MG in SODIUM CHLORIDE 0.9% 90 ML IV SCH ×2 (07:59→19:13)
[2019-03-14] MEDS: SODIUM CHLORIDE 0.9% 1,000 ML IV SCH ×2 (08:00→16:08)
[2019-03-14 08:21] LABS: Calcium 9.1 mg/dL (8.4-10.2)
[2019-03-14 08:28] LABS: Potassium 4.8 mmol/L (3.5-5.1)
[2019-03-14] MEDS ORDERED: DEXTROSE 10 % IN WATER 125 ML IV ONE (08:54)
[2019-03-14 10:22] LABS: Glucose,Whole Blood 72 mg/dL (75-99)
[2019-03-14] MEDS ORDERED: LIDOCAINE 1% INJ 10MG/ML (20 ML MDV) ONE ×2 (11:12)
[2019-03-14] MEDS ORDERED: fentaNYL (PF) 50 MCG/ML 2 ML AMP ONE (11:15)
[2019-03-14] MEDS ORDERED: FUROSEMIDE 10 MG/ML 2 ML VIAL ONE (11:15)
[2019-03-14] MEDS ORDERED: MIDAZOLAM 2 MG/2 ML VIAL ONE (11:15)
[2019-03-14] MEDS ORDERED: PROPOFOL 10 MG/ML 20 ML VIAL IV ONE (11:15)
[2019-03-14] MEDS: LIDOCAINE 1% INJ 10MG/ML (20 ML MDV) SQ ONE ×2 (12:13→12:22)
[2019-03-14] MEDS ORDERED: IOPAMIDOL-300 50ML BTL INJ ONE (12:41)
[2019-03-14] MEDS ORDERED: IOPAMIDOL-370 50ML BTL INJ ONE (12:41)
--- NOTE | 2019-03-14 13:56 | P.PRLE ---
RE: Pedro Gaviria Dear Laquita Mr. Gaviria has severe heart failure with severe cardio myopathy and an underlying left bundle branch block pattern. He is a single chamber ICD impla nted several years back. Today he underwent upgrade to a biventricular ICD I had to bring him prior to the procedure for an IV Lasix drip to address his orthopnea Hopefully with a biventricular pacing and further maximization of his heart failure medications his CHF status will improve Thank you for entrusting me with the care of the patient Warm regards Sincerely Cliff Cantu
[2019-03-14] MEDS ORDERED: ACETAMINOPHEN TAB 325 MG TAB PO PRN (14:00)
[2019-03-14 14:47] VITALS: RESP 18
[2019-03-14] MEDS ORDERED: ACETAMINOPHEN IV (For NPO) 1,000 MG in EMPTY BAG 1 BAG IVPB ONE (15:00)
[2019-03-14] MEDS: SPIRONOLACTONE 25 MG TAB PO SCH (16:03)
[2019-03-14] MEDS: LOSARTAN 25 MG TAB PO SCH (16:03)
[2019-03-14] MEDS: HYDROcodone/APAP 5-325MG 1 EACH TAB PO PRN ×2 (16:03→20:11)
[2019-03-14] MEDS: LACTATED RINGERS 1,000 ML IV SCH (16:07)
--- NOTE | 2019-03-14 16:26 | PCN ---
PROCEDURE NOTE This is a 78-year-old male patient with severe nonischemic cardiomyopathy, severe class 3 heart failure symptoms, wide QRS, left bundle branch block type, QRS width 146 milliseconds, diabetes, hypertension, obesity. He has a single-chamber ICD. He is brought in for an upgrade to a biventricular ICD. Patient was brought to the EP lab in a fasting state. Written informed consent was obtained prior to the procedure. The left shoulder area was prepped and draped as per protocol. Lidocaine 1% was used for local anesthesia. IV antibiotics were administered. An incision was made in the deltopectoral groove and carried down to the level of the pectoralis muscle. The single-chamber ICD, [employer], was explanted. Partial capsulectomy was performed. Two accesses were obtained, and via these, via appropriately sized introducer sheaths, two leads were positioned. The high right atrial lead was a Medtronic model number 4076, 52 cm in length, and serial number [id number]. This was screwed into the right atrial appendage. P waves 1 mV, pacing impedance 550 ohms, pacing threshold 1.6 V at 0.5 milliseconds. Ten-volt test was negative. The coronary sinus was accessed. Coronary sinus venogram was performed. A large lateral vein that was connected to the middle cardiac vein was found. An cm Medtronic new lead was placed. This was a model number 4398, serial number [id number]. This was positioned in the lateral vein. Excellent thresholds were obtained. Pacing impedance 421 ohms, pacing threshold 0.5 V at 0.5 milliseconds, LV2 poles. Ten-volt test was negative. The sheaths were removed. The leads were secured to the underlying pectoralis muscle. Pocket was irrigated with antibiotic solution. The new generator was implanted. This was a Medtronic biventricular ICD model number [id number], serial number [id number]. Lead and the generator were then placed in the subfascial pocket. The wound was closed in 3 layers and dressed per protocol. DFT testing was withheld on account of the severity of the patient's heart failure. We had started him on IV Lasix early this morning to help improve his orthopnea and heart failure. IV Lasix was then discontinued at the end of the procedure. The Barnhart catheter was removed, and the new medications added were low-dose of losartan 12.5 mg p.o. daily and low-dose spironolactone 12.5 mg p.o. daily. Oral potassium was discontinued. Coreg was continued. Lasix was continued p.o. RESULT: Successful upgrade to a biventricular ICD with narrowing of the QRS width from 146 milliseconds down to 114 milliseconds. MMODL / IJN: [id number] /
[2019-03-14 16:48] LABS: Glucose,Whole Blood 94 mg/dL (75-99)
[2019-03-14] MEDS: CARVEDILOL 3.125 MG TAB PO SCH (17:46)
[2019-03-14] MEDS: ceFAZolin 3 GM in SODIUM CHLORIDE 0.9% 100 ML IVPB SCH ×2 (18:01→21:34)
[2019-03-14 19:58] LABS: Glucose,Whole Blood 109 mg/dL (75-99)
[2019-03-15] MEDS: SODIUM CHLORIDE 0.9% 1,000 ML IV SCH ×2 (02:56)
[2019-03-15] MEDS: FUROSEMIDE 100 MG in SODIUM CHLORIDE 0.9% 90 ML IV SCH (03:52)
[2019-03-15] MEDS: ceFAZolin 3 GM in SODIUM CHLORIDE 0.9% 100 ML IVPB SCH ×2 (03:57→10:54)
[2019-03-15] MEDS: LACTATED RINGERS 1,000 ML IV SCH (05:45)
[2019-03-15 06:54] LABS: Glucose,Whole Blood 111 mg/dL (75-99)
[2019-03-15 07:46] VITALS: PULSE 86
--- NOTE | 2019-03-15 07:52 | XR ---
EXAMINATION TYPE: XR chest 2V DATE OF EXAM: 03/15/2019 COMPARISON: 02/10/2017 TECHNIQUE: PA and lateral views submitted. HISTORY: Lead placement check FINDINGS: The lungs are clear and there is no pneumothorax, pleural effusion, or focal pneumonia. The heart i s enlarged and there is a coarsened interstitium. Triple lead cardiac device noted with the no sizabl e pneumothorax. Hypertrophic and degenerative change of the spine. IMPRESSION: 1. Cardiac device placement with no sizable pneumothorax. 2. Cardiomegaly with findings suggestive of interstitial venous congestion correlate clinically.
[2019-03-15] MEDS ORDERED: FUROSEMIDE 40 MG TAB PO SCH (09:00)
[2019-03-15] MEDS ORDERED: FUROSEMIDE 20 MG TAB PO SCH (09:00)
[2019-03-15] MEDS: CARVEDILOL 3.125 MG TAB PO SCH (09:05)
[2019-03-15] MEDS: SPIRONOLACTONE 25 MG TAB PO SCH (09:05)
[2019-03-15] MEDS: LOSARTAN 25 MG TAB PO SCH (09:06)
[2019-03-15 11:42] VITALS: BP 103/67; TEMP 98.3
[2019-03-15] MEDS ORDERED: INSULIN ASPART (NovoLOG) 100 UNIT/ML VIAL SQ SCH (14:00)
== END 2019-03-15 12:35 | disposition home or self-care (01) ==
LOC: CATHEP 07:33 → 1SOBS 13:50 → CATHEP 03-15 12:35
PROVIDERS: ATTEND Internal Medicine Clinical Cardiac Electrophysiology
DX: Z45.02 Encounter for adjustment and management of automatic implantable cardiac defibrillator (principal); I42.8 Other cardiomyopathies; I44.7 Left bundle-branch block, unspecified; I11.0 Hypertensive heart disease with heart failure; I50.22 Chronic systolic (congestive) heart failure; E78.5 Hyperlipidemia, unspecified; I47.1 Supraventricular tachycardia; I49.3 Ventricular premature depolarization; E66.9 Obesity, unspecified; Z68.39 Body mass index [BMI] 39.0-39.9, adult; E11.9 Type 2 diabetes mellitus without complications; Z72.0 Tobacco use; Z79.82 Long term (current) use of aspirin; Z79.4 Long term (current) use of insulin; Z79.899 Other long term (current) drug therapy; Z97.2 Presence of dental prosthetic device (complete) (partial)
CPT/HCPCS: 33225; 33249; 80048; 84443; 71046; C1769 ×6; C1892; C1730; C1900; C1898; C1882; J2250; J1940; J0690 ×2; J2001; J3010; J2704; Q9967; 33264

== ENCOUNTER 2019-07-28 15:02 | Inpatient (IN) | payer MEDICARE, OTHER ==
[2019-07-28] MEDS ORDERED: SODIUM CHLORIDE 0.9% 500 ML 500 ML IV STA (15:18)
--- NOTE | 2019-07-28 15:21 | ED ---
General Adult HPI - General Stated complaint: weakness Time Seen by Provider: 07/28/19 15:02 Source: RN notes reviewed, old records reviewed - History of Present Illness Initial comments: EKG shows a 78-year-old male who presents emergency department by EMS EMS as report was that the patient was generally weak but when I interviewed the patient he said he's been having problems with his left leg for months but this morning he was unable to manipulate it and felt it to be much weaker. Patient also complete left arm weakness as well patient states he was unable to stand was falling multiple times in the thought of having had a stroke did run across his mind his told me get to the emergency department. Patient states he woke up with these symptoms at about 9:15 this morning. Patient denies any headache patient denies any chest pain palpitations difficulty breathing shortness of breath. Patient denies any fever chills or cough per patient has abdominal pain. Patient denies any injury with any of his falls today. - Related Data Home Medications Medication Instructions Recorded Confirmed Carvedilol [Coreg] 3.125 mg PO BID 02/10/17 03/14/19 Furosemide [Lasix] 20 mg PO DAILY 02/25/19 03/14/19 Insulin Glargine [Lantus] 120 unit SQ HS 02/25/19 03/14/19 Insulin Aspart [NovoLOG Flexpen] 26 units SQ ONCE 03/14/19 03/14/19 Previous Rx's Medication Instructions Recorded Losartan [Cozaar] 12.5 mg PO DAILY #90 tab 03/14/19 Spironolactone 12.5 mg PO DAILY #90 tablet 03/14/19 Allergies Allergy/AdvReac Type Severity Reaction Status Date / Time liraglutide [From Victoza] Allergy Rash/Hives Verified 07/28/19 15:52 Review of Systems ROS Statement: Those systems with pertinent positive or pertinent negative responses have been documented in the HPI. ROS Other: All systems not noted in ROS Statement are negative. Past Medical History Past Medical History: Diabetes Mellitus, Prostate Disorder Additional Past Medical History / Comment(s): AICD., SEE DR GRAMAJO H&P History of Any Multi-Drug Resistant Organisms: None Reported Past Surgical History: AICD, Back Surgery, Heart Catheterization Additional Past Surgical History / Comment(s): ANGIOGRAM, HEART CATH (07/2016), AICD [employer] (02/2017) Past Anesthesia/Blood Transfusion Reactions: No Reported Reaction Type of Cardiac Device: AICD Device Placement Date:: 02/09/2017 Past Psychological History: No Psychological Hx Reported Smoking Status: Former smoker Past Alcohol Use History: None Reported Additional Past Alcohol Use History / Comment(s): QUIT SMOKING 1979, SPOKED 2PPD FOR 15 YRS Past Drug Use History: None Reported - Past Family History Mother Family Medical History: No Reported History Father Family Medical History: No Reported History Brother(s) Family Medical History: Deep Vein Thrombosis (DVT) General Exam - General Exam Comments Initial Comments: GENERAL: Patient is well-developed and well-nourished. Patient is nontoxic and well- hydrated and is in mild distress. ENT: Neck is soft and supple. No significant lymphadenopathy is noted. Oropharynx is clear. Moist mucous membranes. Neck has full range of motion without eliciting any pain. EYES: The sclera were anicteric and conjunctiva were pink and moist. Extraocular movements were intact and pupils were equal round and reactive to light. Eyelids were unremarkable. PULMONARY: Unlabored respirations. Good breath sounds bilaterally. No audible rales rh onchi or wheezing was noted. CARDIOVASCULAR: There is a regular rate and rhythm without any murmurs gallops or rubs. ABDOMEN: Soft and nontender with normal bowel sounds. SKIN: Skin is clear with no lesions or rashes and otherwise unremarkable. NEUROLOGIC: Patient is alert and oriented x3. Patient has left-sided facial droop. Patient has weakness and drift of the left arm he also significant weakness of the left leg. He had mild slurred speech as well. MUSCULOSKELETAL: Normal extremities with adequate strength and full range of motion. LYMPHATICS: No significant lymphadenopathy is noted PSYCHIATRIC: Normal psychiatric evaluation. Course Vital Signs 07/28/19 07/28/19 07/28/19 15:15 15:30 15:45 Temperature 97.9 F Pulse Rate 76 71 76 Respiratory 20 20 22 Rate Blood Pressure 109/73 108/65 109/73 O2 Sat by Pulse 94 L 96 98 Oximetry 07/28/19 07/28/19 07/28/19 16:00 16:15 16:22 Temperature Pulse Rate 80 76 79 Respiratory 22 24 22 Rate Blood Pressure 107/56 90/64 106/80 O2 Sat by Pulse 94 L 95 93 L Oximetry 07/28/19 07/28/19 16:30 17:00 Temperature Pulse Rate 79 85 Respiratory 16 20 Rate Blood Pressure 108/94 114/97 O2 Sat by Pulse 98 95 Oximetry Medical Decision Making - Medical Decision Making EKG shows a sinus rhythm at 89 bpm with multiple PVCs QRS is 114 QT interval 446 QTC is 542. Repeat EKG was done because the patient was complaining of a little more shortness of breath. Patient showed a paced rhythm at 81 bpm I don't see any patient's EKG showed a rate of 81 bpm the computer indicated a paced rhythm though I don't see any pacer spikes. ND interval is 100 QRS 178 QT interval 520 QTC is 604. Patient does have multiple PVCs. CT of the brain shows no acute abnormality. CTA of the head and neck showed no acute abnormality. I spoke with Dr. Vasquez and he agreed that if the CT CTA were negative that the patient be started on heparin for the elevated troponin. I spoke with Dr. Ojeda and informed him of the elevated troponin he was in agreement with the heparin ordered as well. I spoke with Dr. Shook agreed to admission I admitted the patient and I consult the neurology. - Lab Data Result diagrams: 07/28/19 15:26 07/28/19 15:26 Lab Results 07/28/19 07/28/19 07/28/19 Range/Units 15:26 15:26 15:26 WBC 11.2 H (3.8-10.6) k/uL RBC 5.39 (4.30-5.90) m/uL Hgb 14.4 (13.0-17.5) gm/dL Hct 45.3 (39.0-53.0) % MCV 84.1 (80.0-100.0) fL MCH 26.8 (25.0-35.0) pg MCHC 31.8 (31.0-37.0) g/dL RDW 14.8 (11.5-15.5) % Plt Count 276 (150-450) k/uL Neutrophils % 74 % Lymphocytes % 16 % Monocytes % 7 % Eosinophils % 2 % Basophils % 0 % Neutrophils # 8.2 H (1.3-7.7) k/uL Lymphocytes # 1.7 (1.0-4.8) k/uL Monocytes # 0.8 (0-1.0) k/uL Eosinophils # 0.2 (0-0.7) k/uL Basophils # 0.0 (0-0.2) k/uL Hypochromasia Slight PT (9.0-12.0) sec INR (<1.2) APTT (22.0-30.0) sec Sodium 136 L (137-145) mmol/L Potassium 4.5 (3.5-5.1) mmol/L Chloride 106 (98-107) mmol/L Carbon Dioxide 20 L (22-30) mmol/L Anion Gap 10 mmol/L BUN 27 H (9-20) mg/dL Creatinine 1.66 H (0.66-1.25) mg/dL Est GFR (CKD-EPI)AfAm 46 (>60 ml/min/1.73 sqM) Est GFR (CKD-EPI)NonAf 40 (>60 ml/min/1.73 sqM) Glucose 74 (74-99) mg/dL Calcium 9.5 (8.4-10.2) mg/dL Total Bilirubin 1.2 (0.2-1.3) mg/dL AST 75 H (17-59) U/L ALT 20 (4-49) U/L Alkaline Phosphatase 56 (38-126) U/L Total Creatine Kinase 500 H (55-170) U/L CK-MB (CK-2) 9.6 H (0.0-2.4) ng/mL CK-MB (CK-2) Rel Index 1.9 Troponin I 7.090 H* (0.000-0.034) ng/mL Total Protein 8.2 (6.3-8.2) g/dL Albumin 4.5 (3.5-5.0) g/dL 07/28/19 Range/Units 15:26 WBC (3.8-10.6) k/uL RBC (4.30-5.90) m/uL Hgb (13.0-17.5) gm/dL Hct (39.0-53.0) % MCV (80.0-100.0) fL MCH (25.0-35.0) pg MCHC (31.0-37.0) g/dL RDW (11.5-15.5) % Plt Count (150-450) k/uL Neutrophils % % Lymphocytes % % Monocytes % % Eosinophils % % Basophils % % Neutrophils # (1.3-7.7) k/uL Lymphocytes # (1.0-4.8) k/uL Monocytes # (0-1.0) k/uL Eosinophils # (0-0.7) k/uL Basophils # (0-0.2) k/uL Hypochromasia PT 11.0 (9.0-12.0) sec INR 1.1 (<1.2) APTT 22.8 (22.0-30.0) sec Sodium (137-145) mmol/L Potassium (3.5-5.1) mmol/L Chloride (98-107) mmol/L Carbon Dioxide (22-30) mmol/L Anion Gap mmol/L BUN (9-20) mg/dL Creatinine (0.66-1.25) mg/dL Est GFR (CKD-EPI)AfAm (>60 ml/min/1.73 sqM) Est GFR (CKD-EPI)NonAf (>60 ml/min/1.73 sqM) Glucose (74-99) mg/dL Calcium (8.4-10.2) mg/dL Total Bilirubin (0.2-1.3) mg/dL AST (17-59) U/L ALT (4-49) U/L Alkaline Phosphatase (38-126) U/L Total Creatine Kinase (55-170) U/L CK-MB (CK-2) (0.0-2.4) ng/mL CK-MB (CK-2) Rel Index Troponin I (0.000-0.034) ng/mL Total Protein (6.3-8.2) g/dL Albumin (3.5-5.0) g/dL Critical Care Time Critical Care Time: Yes Total Critical Care Time: 35 Disposition Clinical Impression: Cerebrovascular accident (CVA), Non-STEMI (non-ST elevated myocardial infarction) Disposition: ADMITTED IP TO THIS [facility] Referrals: Srinath Morgan DO [Primary Care Provider] - 1-2 days Time of Disposition: 17:24
[2019-07-28 15:31] LABS: Basophils % (A) 0 %; Eosinophils # (A) 0.2 k/uL (0-0.7); Eosinophils % (A) 2 %; HCT 45.3 % (39.0-53.0); HGB 14.4 gm/dL (13.0-17.5); Hypochromasia Slight; Lymphocytes # (A) 1.7 k/uL (1.0-4.8); Lymphocytes % (A) 16 %; MCH 26.8 pg (25.0-35.0); MCHC 31.8 g/dL (31.0-37.0); MCV 84.1 fL (80.0-100.0); Mean Platelet Volume 8.5; Monocytes # (A) 0.8 k/uL (0-1.0); Monocytes % (A) 7 %; Neutrophils # (A) 8.2 k/uL (1.3-7.7); Neutrophils % (A) 74 %; Platelet Count 276 k/uL (150-450); RBC 5.39 m/uL (4.30-5.90); RDW 14.8 % (11.5-15.5); WBC 11.2 k/uL (3.8-10.6)
[2019-07-28 15:39] LABS: INR 1.1 (<1.2); Partial Thromboplastin Time 22.8 sec (22.0-30.0)
[2019-07-28 15:45] LABS: Albumin 4.5 g/dL (3.5-5.0); Calcium 9.5 mg/dL (8.4-10.2); Potassium 4.5 mmol/L (3.5-5.1); Total Bilirubin 1.2 mg/dL (0.2-1.3); Total Protein 8.2 g/dL (6.3-8.2)
--- NOTE | 2019-07-28 15:46 | CT ---
EXAMINATION TYPE: CT brain wo con DATE OF EXAM: 07/28/2019 HISTORY: Neuro deficit, acute, stroke suspected CT DLP: 1026 mGycm. Automated Exposure Control for Dose Reduction was Utilized. TECHNIQUE: CT scan of the head is performed without contrast. COMPARISON: None. FINDINGS: There is no acute intracranial hemorrhage or midline shift identified. There is diffuse v entricular and sulcal prominence consistent with diffuse age-related cerebral atrophy. There is low- attenuation in the periventricular white matter consistent with chronic small vessel ischemic change. The globes are intact and the visualized sinuses are clear. IMPRESSION: No acute intracranial hemorrhage or midline shift. There is mild to moderate diffuse ag e-related cerebral atrophy and mild chronic small vessel ischemic change noted.
[2019-07-28 15:52] LABS: Creatine Kinase MB 9.6 ng/mL (0.0-2.4)
[2019-07-28 15:59] LABS: Troponin I 7.09 ng/mL (0.000-0.034)
--- NOTE | 2019-07-28 17:11 | CT ---
EXAMINATION TYPE: CT angio head neck DATE OF EXAM: 07/28/2019 COMPARISON: None HISTORY: Neuro deficit, acute, stroke suspected CT DLP: 636.4 mGycm Automated exposure control for dose reduction was used. CONTRAST: Performed with IV Contrast, patient injected with 65 mL of Isovue 370. There are 3-D post processed images. There is normal branching pattern of the great vessels on the aortic arch. There is bilateral arteria l flow in the subclavian arteries. There is arterial flow in the common internal and external carotid arteries bilaterally. There is bilateral arterial flow in the vertebral arteries. The carotid artery bifurcations are fairly normal. There is minimal plaque on the left side and approximately 25% steno sis. There is arterial flow in the vertebrobasilar artery system. There is atherosclerotic calcificat ion of the distal vertebral arteries. There is arterial flow in the anterior middle and posterior cerebral arteries. I see no mass effect. There is no sign of intracranial aneurysm or neovascularity. There is normal contrast opacification o f the venous sinuses. IMPRESSION: Minimal atherosclerotic plaque formation. No evidence of hemodynamic stenosis. Negative CT angiogram of the brain.
--- NOTE | 2019-07-28 17:17 | XR ---
EXAMINATION TYPE: XR chest 2V DATE OF EXAM: 07/28/2019 COMPARISON: 03/15/2019 HISTORY: Altered mental status TECHNIQUE: FINDINGS: Heart is moderately enlarged. There is left axillary pacemaker. There are chest leads. Ther e is no heart failure. Lungs are clear of infiltrate. Bony thorax is intact. IMPRESSION: Moderately severe cardiomegaly unchanged. No heart failure seen.
[2019-07-28] MEDS ORDERED: HEPARIN SODIUM,PORCINE 5,000 UNIT/ML 1 ML VIAL IV ONE (17:25)
[2019-07-28] MEDS ORDERED: ASPIRIN 325 MG TAB PO STA (17:26)
[2019-07-28] MEDS ORDERED: HEPARIN SOD,PORK IN 0.45% NACL 25,000 UNIT in 0.45% NACL 1 250ML.BAG IV SCH (17:30)
[2019-07-28 17:51] LABS: Appearance,Urine Clear (Clear); Bilirubin,Urine Negative (Negative); Blood,Urine Negative (Negative); Color,Urine Light Yellow; Glucose,Urine (UA) Negative (Negative); Hyaline Casts,Urine 18 /lpf (0-2); Ketones,Urine Negative (Negative); Leukocyte Esterase,Urine Trace (Negative); Mucus,Urine Rare /hpf; Nitrite,Urine Negative (Negative); Protein,Urine Negative (Negative); RBC,Urine 1 /hpf (0-5); Specific Gravity,Urine 1.039 (1.001-1.035); Squamous Epithelial Cell,Urine 1 /hpf (0-4); Urobilinogen,Urine <2.0 mg/dL (<2.0); WBC,Urine 4 /hpf (0-5)
[2019-07-28] MEDS: NITROGLYCERIN OINT 1 INCH/GM PACKET TOPICAL SCH (18:50)
[2019-07-28] MEDS: FAMOTIDINE 20 MG TAB PO SCH (18:50)
--- NOTE | 2019-07-28 19:17 | P.CNNES ---
History of Present Illness Consult date: 07/28/19 Requesting physician: Juan Chery Reason for Consult: CVA History of Present Illness: Patient is a 78-year-old male, who woke up this morning with weakness of left side of the body including arm and leg. Patient states that he went to bed at 11 PM last night and was fine. He remembers waking up at 2 in the morning, to go to bathroom and was also fine. At 9 AM, he woke up, and tried to walk, kept on falling. Patient stayed home, came to the ER finally at 3:02 PM. Patient's blood pressure on arrival was 109/73, pulse rate 76 and temperature 97.9. Patient denies slurred speech, headache or problem with the vision. Patient underwent CT head showed no acute intracranial hemorrhage or midline shift. There is mild to moderate diffuse age-related cerebral atrophy and mild chronic small vessel ischemic change. CTA of head and neck showed minimal atherosclerotic plaque formation. No evidence of hemodynamic stenosis. Negative CTA of the brain. Chest x-ray showed moderately severe cardiomegaly. EKG showed ventricular paced rhythm. Another EKG showed atrial sensed ventricle are paced rhythm. Patient's blood tests showed WBC 11.2 hemoglobin 14.4 platelets are normal. PT/PTT normal. Sodium 136 potassium 4.5, BUN 27, creatinine 1.66. AST is 75, ALT normal 20. Troponin is 7.090. UA negative. ED staff discussed case with stroke neurologist Dr. Vasquez, who recommended no TPA, as patient was clearly outside the window. Heparin was recommended because of elevated troponin. Patient states he has history of diabetes for 10-12 years, hypertension. He also has a defibrillator placed. Patient smoked 2 packs per day for 15 years, quit 40 years ago. Denies history of strokes or TIAs. Denies any alcohol or drugs. Patient does not take any aspirin or any other antiplatelets or anticoa gulants. Review of Systems Patient is completed of shortness of breath for the last few days. Denies any chest pain. Denies any fever or cough. Denies headache problem with the vision. No hoarseness or throat dysphagia. Denies any nausea vomiting diarrhea. Past Medical History Past Medical History: Diabetes Mellitus, Prostate Disorder Additional Past Medical History / Comment(s): AICD., SEE DR GRAMAJO H&P History of Any Multi-Drug Resistant Organisms: None Reported Past Surgical History: AICD, Back Surgery, Heart Catheterization Additional Past Surgical History / Comment(s): ANGIOGRAM, HEART CATH (07/2016), AICD [employer] (02/2017) Past Anesthesia/Blood Transfusion Reactions: No Reported Reaction Type of Cardiac Device: AICD Device Placement Date:: 02/09/2017 Past Psychological History: No Psychological Hx Reported Smoking Status: Former smoker Past Alcohol Use History: None Reported Additional Past Alcohol Use History / Comment(s): QUIT SMOKING 1979, SPOKED 2PPD FOR 15 YRS Past Drug Use History: None Reported - Past Family History Mother Family Medical History: No Reported History Father Family Medical History: No Reported History Brother(s) Family Medical History: Deep Vein Thrombosis (DVT) Medications and Allergies Home Medications Medication Instructions Recorded Confirmed Type Insulin Aspart [NovoLOG Flexpen] 20 units SQ AC-BRKFST 03/14/19 07/28/19 History Losartan [Cozaar] 12.5 mg PO DAILY #90 tab 03/14/19 07/28/19 Rx Spironolactone 12.5 mg PO DAILY #90 tablet 03/14/19 07/28/19 Rx Furosemide [Lasix] 40 mg PO DAILY 07/28/19 07/28/19 History Insulin Aspart [NovoLOG Flexpen] 10 units SQ AC-LUNCH 07/28/19 07/28/19 History Insulin Aspart [NovoLOG Flexpen] 25 units SQ AC-SUPPER 07/28/19 07/28/19 History Insulin Detemir [Levemir Flextouch] 110 units SQ DAILY 07/28/19 07/28/19 History Metolazone [Zaroxolyn] 2.5 mg PO Q48H 07/28/19 07/28/19 History Allergies Allergy/AdvReac Type Severity Reaction Status Date / Time liraglutide [From Victoza] Allergy Rash/Hives Verified 07/28/19 18:03 Physical Examination - Vital Signs Vital Signs: Vital Signs Temp Pulse Resp BP Pulse Ox 07/28/19 17:00 85 20 114/97 95 07/28/19 16:30 79 16 108/94 98 07/28/19 16:22 79 22 106/80 93 L 07/28/19 16:15 76 24 90/64 95 07/28/19 16:00 80 22 107/56 94 L 07/28/19 15:45 76 22 109/73 98 07/28/19 15:30 71 20 108/65 96 07/28/19 15:15 97.9 F 76 20 109/73 94 L Intake and Output 07/28/19 07/28/19 07/28/19 06:59 14:59 22:59 Output Total 200 Balance -200 Output: Urine 200 Other: # Voids 1 Weight 139.661 kg On examination patient is an elderly Afro[place] male, in no distress. Patien t is alert and awake fully oriented to time place and person speech and language function are normal attention and concentration fund of knowledge is adequate. On cranial nerve examination pupils are round and reactive to light, visual wen are full on confrontation with no neglect. Patient has left facial weakness, central type. Tongue protrudes the midline. Palatal elevation and sensation normal. On muscle strength testing patient has left pronator drift. The strength is normal in the right arm and right leg. On the left side his deltoid is 5-, biceps and triceps appears normal, emerging [employer] executive is 4+ to 5-. Patient's ankle is 5-, hip flexion 4+ to 5-. Sensation is equal bilaterally with no neglect on double simultaneous stimulation. Gait deferred. Patient is ataxic for [id number] on the left. Tone and bulk of muscles normal. No obvious bruit, S1 and S2 audible. Peripheral pulses present. Results - Laboratory Findings CBC and BMP: 07/28/19 15:26 07/28/19 15:26 Abnormal Lab Findings: Abnormal Labs 07/28/19 07/28/19 07/28/19 15:26 15:26 15:26 WBC 11.2 H Neutrophils # 8.2 H Sodium 136 L Carbon Dioxide 20 L BUN 27 H Creatinine 1.66 H AST 75 H Total Creatine Kinase 500 H CK-MB (CK-2) 9.6 H Troponin I 7.090 H* Ur Specific [place] Ur Leukocyte Esterase Hyaline Casts Urine Mucus 07/28/19 16:25 WBC Neutrophils # Sodium Carbon Dioxide BUN Creatinine AST Total Creatine Kinase CK-MB (CK-2) Troponin I Ur Specific [place] 1.039 H Ur Leukocyte Esterase Trace H Hyaline Casts 18 H Urine Mucus Rare H Assessment and Plan Assessment: * 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 Differential includes lacuna r CVA from small vessel disease. Patient also has elevated cardiac enzymes, therefore cardioembolism also a possibility. * Elevated cardiac enzymes, possible non-STEMI. * Hypertension * Diabetes * Obesity * X tobacco use * Defibrillator. Plan: * Patient has presented with acute left hemiparesis, moderate in degree. Patient will be started on aspirin 325 mg daily.(Patient was not on any antiplatelet medication at home). * Agree with starting heparin IV, for acute SD. * 2-D echo to rule out any embolic source. * Hemoglobin A1c and fasting lipid panel. * Patient cannot have MRI because of presence of defibrillator. * Suggest permissible hypertension for 24-48 hours, unless necessary from cardiac standpoint. * PT OT. * Neurology will follow.
[2019-07-28 20:46] LABS: Glucose,Whole Blood 69 mg/dL (75-99)
[2019-07-28] MEDS ORDERED: FAMOTIDINE 20 MG/2 ML VIAL IV SCH (21:00)
[2019-07-28 21:06] LABS: Glucose,Whole Blood 78 mg/dL (75-99)
[2019-07-28] MEDS: INSULIN ASPART (NovoLOG) 100 UNIT/ML VIAL SQ SCH ×2 (21:11)
[2019-07-28] MEDS: ATORVASTATIN 40 MG TAB PO SCH (21:11)
[2019-07-29] MEDS: NITROGLYCERIN OINT 1 INCH/GM PACKET TOPICAL SCH ×4 (06:00→18:09)
[2019-07-29 06:13] LABS: Glucose,Whole Blood 83 mg/dL (75-99)
[2019-07-29] MEDS: INSULIN ASPART (NovoLOG) 100 UNIT/ML VIAL SQ SCH ×7 (06:39→21:31)
[2019-07-29 06:57] LABS: Calcium 9.1 mg/dL (8.4-10.2); Potassium 4.2 mmol/L (3.5-5.1)
[2019-07-29] MEDS ORDERED: INSULIN DETEMIR SQ SCH (09:00)
[2019-07-29] MEDS ORDERED: METOLAZONE 2.5 MG TAB PO SCH (09:00)
[2019-07-29] MEDS: FAMOTIDINE 20 MG TAB PO SCH (09:37)
[2019-07-29] MEDS: ASPIRIN 325 MG TAB PO SCH (09:37)
[2019-07-29] MEDS: FUROSEMIDE 40 MG TAB PO SCH (09:38)
[2019-07-29] MEDS: METOPROLOL SUCCINATE (ER) 25 MG TAB.ER.24H PO SCH (09:38)
[2019-07-29] MEDS: INSULIN DETEMIR (LEVEMIR) 100 UNIT/ML SYR SQ SCH (09:38)
[2019-07-29] MEDS: SPIRONOLACTONE 25 MG TAB PO SCH (09:38)
[2019-07-29] MEDS: LOSARTAN 25 MG TAB PO SCH (09:38)
--- NOTE | 2019-07-29 10:22 | CONS ---
CONSULTATION Pedro is a 78-year-old gentleman that is admitted to hospital with left-sided CVA and Cardiology had been consulted because of elevated troponin. Patient denies chest pain, difficulty in breathing, palpitations, dizziness or syncope. He has history of hypertension and diabetes and has had prior AICD. Patient had mild nonobstructive coronary artery disease and a cardiac catheterization in the past. At the time of my evaluation this morning, he appears comfortable at rest. Alert, able to communicate. Has mild left-sided hemiparesis that is improving. PAST MEDICAL HISTORY: Significant for hypertension, diabetes. MEDICATIONS: Include insulin, Cozaar, Aldactone, Lasix and metolazone. ALLERGIES: Allergic to VICTOZA. FAMILY HISTORY: Negative for premature coronary artery disease. SOCIAL HISTORY: Negative for current smoking, EtOH abuse, or drug abuse. REVIEW OF SYSTEMS: HEENT is unremarkable. CARDIAC: As described above. RESPIRATORY: As described above. GI: Negative. GENITOURINARY: Negative. ALLERGY: Negative. MUSCULOSKELETAL: Negative. ENDOCRINE: Negative. HEMATOLOGICAL: Negative. DERM: Negative. CONSTITUTIONAL: Negative. [employer]: Significant for left-sided hemiparesis. PHYSICAL EXAMINATION: On exam, patient is afebrile. Heart rate is 78 beats and blood pressure is 118/72, respiratory rate is 18. Chest exam reveals diminished air entry at the bases. Heart exam reveals first and second heart sounds. Systolic murmur at the apex. Abdomen is soft. Exam of extremities did not reveal any edema. [employer] exam reveals left-sided hemiparesis. LABS: Show that the potassium is 4.2, creatinine is 1.6. Troponins are elevated at 7, 5, and 5. ASSESSMENT: 1. Acute CVA with left-sided hemiplegia. 2. Acute non ST-segment elevation myocardial infarction. 3. Dilated cardiomyopathy, status post AICD. PLAN: I will treat the patient with optimal medical therapy. Add with nitrates, beta blockers, continue the PEE inhibitors, aspirin and statin. I am going to stop the IV heparin, put him on subcu heparin. If he develops any symptoms of chest pain, he will undergo cardiac catheterization at this time. If not, he will be treated with medical therapy and once his neurological symptoms improve, will undergo cardiac catheterization by Dr. Osman. MMDIANNEL / DEEN: [id number] /
--- NOTE | 2019-07-29 11:00 | ECHOF ---
Referral Reason:Acute CVA, DE, rule out embolic source MEASUREMENTS -------- HEIGHT: 182.9 cm WEIGHT: 55.3 kg BP: 111/72 IVSd: 1.8 cm (0.6 - 1.1) LVIDd: 6.6 cm (3.9 - 5.3) LVPWd: 1.8 cm (0.6 - 1.1) IVSs: 1.3 cm LVIDs: 6.3 cm LVPWs: 1.8 cm LAESV Index (A-L): 39.38 ml/m Ao Diam: 3.4 cm (2.0 - 3.7) AV Cusp: 1.9 cm (1.5 - 2.6) LA Diam: 2.5 cm (2.7 - 3.8) MV EXCURSION: 17.722 mm (> 18.000) MV EF SLOPE: 158 mm/s (70 - 150) EPSS: 4.2 cm MV E Alex: 0.44 m/s MV DecT: 179 ms MV A Alex: 0.55 m/s MV E/A Ratio: 0.80 AR PHT: 801 ms RAP: 5.00 mmHg RVSP: 55.63 mmHg FINDINGS -------- Sinus rhythm. AICD This was a technically adequate study. The left ventricle is moderately dilated. There is moderate concentric left ventricular hypertrophy . There is severe global hypokinesis of LV . Overall left ventricular systolic function is severe ly impaired with, an EF < 20%. Increased LAP Grade 3 Diastolic Dysfunction. The right ventricle is normal in size. The left atrial size is normal. The right atrial size is normal. Contrast study was performed with 1 iv injection of 8 ccs of agitated normal saline at rest. Lumason used to rule out clot Interatrial and interventricular septum intact. The aortic valve is trileaflet and appears structurally normal. The mitral valve is normal. The mitral valve leaflets are mildly thickened. Mild mitral regurgita tion is present. The tricuspid valve appears structurally normal. Mild tricuspid regurgitation present. There is m oderate pulmonary hypertension. The right ventricular systolic pressure, as measured by Doppler, is 55.63mmHg. There is no pulmonic regurgitation present. No LV apical thrombus seen. The aortic root size is normal. IVC Not well visulized. There is no pericardial effusion. CONCLUSIONS -------- 1. Sinus rhythm. 2. AICD 3. This was a technically adequate study. 4. The left ventricle is moderately dilated. 5. There is moderate concentric left ventricular hypertrophy. 6. There is severe global hypokinesis of LV . 7. Overall left ventricular systolic function is severely impaired with, an EF < 20%. 8. Increased LAP Grade 3 Diastolic Dysfunction. 9. The right ventricle is normal in size. 10. The left atrial size is normal. 11. The right atrial size is normal. 12. Contrast study was performed with 1 iv injection of 8 ccs of agitated normal saline at rest. 13. Lumason used to rule out clot 14. Interatrial and interventricular septum intact. 15. The aortic valve is trileaflet and appears structurally normal. 16. The mitral valve is normal. 17. The mitral valve leaflets are mildly thickened. 18. Mild mitral regurgitation is present. 19. The tricuspid valve appears structurally normal. 20. Mild tricuspid regurgitation present. 21. There is moderate pulmonary hypertension. 22. The right ventricular systolic pressure, as measured by Doppler, is 55.63mmHg. 23. There is no pulmonic regurgitation present. 24. No LV apical thrombus seen. 25. The aortic root size is normal. 26. IVC Not well visulized. 27. There is no pericardial effusion. FITTING ROOM CHECKER: Perla Llanes RDCS
[2019-07-29 11:37] LABS: Glucose,Whole Blood 223 mg/dL (75-99)
--- NOTE | 2019-07-29 12:14 | P.PN ---
Subjective Progress Note Date: 07/29/19 Patient states he is feeling better. He offers no new complaints. Patient does complain of shortness of breath. States had some cough yesterday. He denies fever or headache. Denies any new numbness tingling or focal weakness. Objective - Vital Signs Vital signs: Vital Signs Temp 97.4 F L 07/29/19 08:00 Pulse 88 07/29/19 08:00 Resp 16 07/29/19 08:00 BP 111/76 07/29/19 08:00 Pulse Ox 100 07/29/19 08:00 Intake & Output 07/28/19 07/29/19 07/29/19 18:59 06:59 18:59 Intake Total 126.167 Output Total 200 250 175 Balance -200 -250 -48.833 Weight 139.661 kg 55.5 kg 131.2 kg Intake: Intake, IV Titration 126.167 Amount Heparin Sod,Pork in 0.45% 126.167 NaCl 25,000 unit In 0.45 % NaCl 1 250ml.bag @ 7.16 UNITS/KG/HR 10 mls/hr IV .Q24H [facility] Rx#:[id number] Output: Urine 200 250 175 Other: Voiding Method Urinal Urinal # Voids 1 - Exam On examination patient is alert and awake, fully oriented. Speech and language functions are normal. Cranial nerve examination revealed very mild left facial asymmetry. Tongue protrudes the midline. Visual wen are full on confrontation. Extraocular muscles intact. On muscle strength testing patient has mild left pronator drift. The strength is normal in the right side. On the left side, The air and hydronic balancing technician is decreased 4+ to 5- (as compared to the right, which is very strong), deltoid 4+ to 5-, biceps and triceps appears normal. In the lower limb, his hip flexion is weak 5-, and ankle dorsiflexion appears normal. Sensory touch is equal. No neglect. Patient is ataxic for [id number] on the left. - Labs CBC & Chem 7: 07/28/19 15:26 07/29/19 05:49 Labs: Abnormal Lab Results - Last 24 Hours (Table) 07/28/19 07/28/19 07/28/19 Range/Units 15:26 15: 15: WBC 11.2 H (3.8-10.6) k/uL Neutrophils # 8.2 H (1.3-7.7) k/uL APTT (22.0-30.0) sec Sodium 136 L (137-145) mmol/L Carbon Dioxide 20 L (22-30) mmol/L BUN 27 H (9-20) mg/dL Creatinine 1.66 H (0.66-1.25) mg/dL POC Glucose (mg/dL) (75-99) mg/dL AST 75 H (17-59) U/L Total Creatine Kinase 500 H (55-170) U/L CK-MB (CK-2) 9.6 H (0.0-2.4) ng/mL Troponin I 7.090 H* (0.000-0.034) ng/mL LDL Cholesterol, Calc (0-99) mg/dL HDL Cholesterol (40-60) mg/dL Ur Specific [place] (1.001-1.035) Ur Leukocyte Esterase (Negative) Hyaline Casts (0-2) /lpf Urine Mucus (None) /hpf 07/28/19 07/28/19 07/29/19 Range/Units 16:25 20:42 00:26 WBC (3.8-10.6) k/uL Neutrophils # (1.3-7.7) k/uL APTT 50.0 H (22.0-30.0) sec Sodium (137-145) mmol/L Carbon Dioxide (22-30) mmol/L BUN (9-20) mg/dL Creatinine (0.66-1.25) mg/dL POC Glucose (mg/dL) 69 L (75-99) mg/dL AST (17-59) U/L Total Creatine Kinase (55-170) U/L CK-MB (CK-2) (0.0-2.4) ng/mL Troponin I (0.000-0.034) ng/mL LDL Cholesterol, Calc (0-99) mg/dL HDL Cholesterol (40-60) mg/dL Ur Specific [place] 1.039 H (1.001-1.035) Ur Leukocyte Esterase Trace H (Negative) Hyaline Casts 18 H (0-2) /lpf Urine Mucus Rare H (None) /hpf 07/29/19 07/29/19 07/29/19 Range/Units 01:59 05:49 05:49 WBC (3.8-10.6) k/uL Neutrophils # (1.3-7.7) k/uL APTT 54.7 H (22.0-30.0) sec Sodium 135 L (137-145) mmol/L Carbon Dioxide (22-30) mmol/L BUN 30 H (9-20) mg/dL Creatinine 1.65 H (0.66-1.25) mg/dL POC Glucose (mg/dL) (75-99) mg/dL AST (17-59) U/L Total Creatine Kinase (55-170) U/L CK-MB (CK-2) (0.0-2.4) ng/mL Troponin I 5.760 H* (0.000-0.034) ng/mL LDL Cholesterol, Calc 106 H (0-99) mg/dL HDL Cholesterol 36 L (40-60) mg/dL Ur Specific [place] (1.001-1.035) Ur Leukocyte Esterase (Negative) Hyaline Casts (0-2) /lpf Urine Mucus (None) /hpf 07/29/19 07/29/19 Range/Units 05:49 11:36 WBC (3.8-10.6) k/uL Neutrophils # (1.3-7.7) k/uL APTT (22.0-30.0) sec Sodium (137-145) mmol/L Carbon Dioxide (22-30) mmol/L BUN (9-20) mg/dL Creatinine (0.66-1.25) mg/dL POC Glucose (mg/dL) 223 H (75-99) mg/dL AST (17-59) U/L Total Creatine Kinase (55-170) U/L CK-MB (CK-2) (0.0-2.4) ng/mL Troponin I 5.020 H* (0.000-0.034) ng/mL LDL Cholesterol, Calc (0-99) mg/dL HDL Cholesterol (40-60) mg/dL Ur Specific [place] (1.001-1.035) Ur Leukocyte Esterase (Negative) Hyaline Casts (0-2) /lpf Urine Mucus (None) /hpf Assessment and Plan Assessment: * 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 Differential includes lacunar CVA from small vessel disease. Patient also has elevated cardiac enzymes, therefore cardioembolism also a possibility. * Acute non-STEMI * Hypertension * Diabetes * Obesity * X tobacco use * Defibrillator. Plan: * Continue aspirin 325 mg daily.(Patient was not on any antiplatelet medication at home). * 2-D echo revealed left ventricle is moderately dilated. Moderate concentric LVH. There is severe global hypokinesis of left ventricle. Left ventricle systolic function is severely impaired with EF <20%. The left atrial size is normal. Bubble study revealed no interatrial or interventricular septal defect. No left ventricular clot or apical clot. Cardiology following. Uncertain if patient would be a candidate for anticoagulation due to severely low ejection fraction with acute stroke. No obvious thrombus noted on the 2-D echo. * Hemoglobin A1c still pending and fasting lipid panel showed cholesterol 153, LDL 106, HDL 36 and triglycerides 53. * Patient cannot have MRI because of presence of defibrillator. * PT OT. * Continue telemetry monitoring to rule out paroxysmal atrial fibrillation. * Repeat computed tomography scan of head in a.m. to follow-up on the stroke.
[2019-07-29] MEDS ORDERED: HEPARIN SODIUM,PORCINE 5,000 UNIT/ML 1 ML VIAL SQ SCH (16:00)
--- NOTE | 2019-07-29 16:51 | US ---
EXAMINATION TYPE: US venous doppler duplex LE DATE OF EXAM: 07/29/2019 4:45 PM COMPARISON: NONE CLINICAL HISTORY: shortness of breath. SOB, pain left leg SIDE PERFORMED: bilateral TECHNIQUE: The lower extremity deep venous system is examined utilizing real time linear array sonog willie with graded compression, doppler sonography and color-flow sonography. VESSELS IMAGED: External Iliac Vein (EIV) Common Femoral Vein Deep Femoral Vein Greater Saphenous Vein * Femoral Vein Popliteal Vein Small Saphenous Vein * Proximal Calf Veins (* superficial vessels) Right Leg: No evidence of DVT as visualized Left Leg: no evidence of DVT as visualized Grayscale, color doppler, spectral doppler imaging performed of the deep veins of the bilateral lower extremities. There is normal flow, compressibility, vascular waveforms. IMPRESSION: No ultrasound evidence for acute DVT in either lower extremity.
[2019-07-29 16:54] LABS: Glucose,Whole Blood 85 mg/dL (75-99)
[2019-07-29 16:58] LABS: Hemoglobin A1C 6.7 % (4.0-6.0)
--- NOTE | 2019-07-29 18:24 | NM ---
EXAMINATION TYPE: NM pul vent and perfuse DATE OF EXAM: 07/29/2019 COMPARISON: Chest x-ray from yesterday. HISTORY: Shortness of breath. TECHNIQUE: Utilizing inhalation of 65.5 mCi Tc 99m DTPA aerosol and intravenous injection of 5.2 mCi of Tc 99m MAA, ventilation and perfusion images are acquired post injection in multiple projections. FINDINGS: Normal radiotracer distribution is noted in the lungs. Radiolucent area over left upper lung correspo nds to overlying pacemaker. There is no evidence of mismatched defects. IMPRESSION: No scintigraphic evidence for acute pulmonary embolism
[2019-07-29] MEDS: ALBUTEROL NEBULIZED 2.5 MG/3 ML INHALATION SCH ×2 (19:01→20:14)
--- NOTE | 2019-07-29 20:14 | P.HPIM ---
History of Present Illness H&P Date: 07/29/19 Chief Complaint: left-sided weakness History of presenting complaint: This is a 78-year-old patient being followed by Dr. Morgan. Poultry Farmer Egg is Dr. Longoria. Chronic stable medical conditions include diabetes mellitus type 2, hyperlipidemia, hypertension, BPH,. Has ejection fraction of 20% and has an AICD for nonsustained V. tach. Also being followed by Dr. dredge boat engineer Dr. metcalf. Patient yesterday developed weakness on the left side both arm and leg swelling of the speech no change in swallowing. No headache. Patient ER also found to have a troponin of 7. There was no chest pain. Patient for 1 week have been progressively increasing shortness of breath before with Dr. Longoria. Especially has orthopnea. No swelling of the lower extremity. Since yesterday some improvement in the weakness on the left side in speech is started to improve. Symptoms started at 9:15 in the morning. Patient started on IV heparin the ER. Cardiac catheterization in 2017 showed normal coronaries. GLORIA in 2017 also had shown moderate mitral regurgitation with EF of 15-20% Review of systems: GEN.: Tired EYES: None HEENT: None NECK: None RESPIRATORY: Orthopnea CARDIOVASCULAR: No chest pain GASTROINTESTINAL: None GENITOURINARY: None MUSCULOSKELETAL: None LYMPHATICS: None HEMATOLOGICAL: None PSYCHIATRY: None NEUROLOGICAL: As above Past medical history to include: Diabetes, hypertension, hyperlipidemia, AICD, BPH, nonsustained V. 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 Smoked 2 packs a day for 15 years stopped in 1979. No alcohol history Family history: Reviewed, noncontributory to presentation Physical examination: VITAL SIGNS: 98.3, 86, 18, 103/67, 98% on 2 L GENERAL: BMI 37, laying in bed, slightly short of breath. EYES: Pupils equal. Conjunctiva normal. HEENT: External appearance of nose and ears normal, oral cavity grossly normal. NECK: JVD possibly raised masses not palpable. HEART: First and second heart sounds are normal; no edema. LUNGS: Respiratory rate increased; clear to auscultation. ABDOMEN: Soft, nontender, liver spleen not palpable, no masses palpable. PSYCH: Alert and oriented x3; mood and affect normal. NEUROLOGICAL: Left facial weakness, power in the left arm and left leg 4/5, reflexes EQ vocal, slight dysarthria. LYMPHATICS: No lymph nodes palpable in the axilla and neck INVESTIGATIONS, reviewed in the clinical context: White count 11.2 hemoglobin 40.4 platelets 276 potassium 4.5 bun 27 creatinine 1.66 Troponin I 7.0, 5.7, 5.0 EKG tracing personally reviewed by me-ventricular paced rhythm with PVCs Chest x-ray film personally reviewed by me-severe cardiomegaly, with some venous prominence Computed tomography scan of the brain-nothing acute, some age-related atrophy CT angiogram of the brain-negative 2-D echocardiogram-moderate concentric left ventricular hypertrophy, EF less than 20%, no apical thrombus Assessment: -Acute non-ST elevation myocardial infarction, likely silent NE given a diabetic, POA -Acute stroke, affecting the left side with hemiparesis, dysarthria, with some improvement from yesterday -Diabetes mellitus type 2 -Essential hypertension with chronic kidney disease -Hyperlipidemia -AICD -Acute on chronic Nonischemic cardiomyopathy EF 20%, but patient having significantly orthopnea and shortness of breath coming on for last 1 week -Hypertensive heart disease Plan: Patient was started on IV heparin the ER. Cardiology was consulted. Neurology was consulted. PTOT is consulted. We will order a VQ scan to rule out PE. We'll give patient 2 doses of IV Lasix 60 mg. Patient most likely has high end- diastolic pressure. Causing his orthopneic symptoms. Care was discussed with the patient question were answered. Renal ultrasound will be done. Also given nephrology consultation. -- Past Medical History Past Medical History: Diabetes Mellitus, Hyperlipidemia, Hypertension, Prostate Disorder Additional Past Medical History / Comment(s): AICD., SEE DR GRAMAJO H&P History of Any Multi-Drug Resistant Organisms: None Reported Past Surgical History: AICD, Back Surgery, Heart Catheterization Additional Past Surgical History / Comment(s): ANGIOGRAM, HEART CATH (07/2016), AICD [employer] (02/2017) Past Anesthesia/Blood Transfusion Reactions: No Reported Reaction Type of Cardiac Device: AICD Device Placement Date:: 02/09/2017 Past Psychological History: No Psychological Hx Reported Smoking Status: Former smoker Past Alcohol Use History: None Reported Additional Past Alcohol Use History / Comment(s): QUIT SMOKING 1979, SPOKED 2PPD FOR 15 YRS Past Drug Use History: None Reported - Past Family History Mother Family Medical History: No Reported History Father Family Medical History: No Reported History Brother(s) Family Medical History: Deep Vein Thrombosis (DVT) Medications and Allergies Home Medications Medication Instructions Recorded Confirmed Type Insulin Aspart [NovoLOG Flexpen] 20 units SQ AC-BRKFST 03/14/19 07/28/19 History Losartan [Cozaar] 12.5 mg PO DAILY #90 tab 03/14/19 07/28/19 Rx Spironolactone 12.5 mg PO DAILY #90 tablet 03/14/19 07/28/19 Rx Furosemide [Lasix] 40 mg PO DAILY 07/28/19 07/28/19 History Insulin Aspart [NovoLOG Flexpen] 10 units SQ AC-LUNCH 07/28/19 07/28/19 History Insulin Aspart [NovoLOG Flexpen] 25 units SQ AC-SUPPER 07/28/19 07/28/19 History Insulin Detemir [Levemir Flextouch] 110 units SQ DAILY 07/28/19 07/28/19 History Metolazone [Zaroxolyn] 2.5 mg PO Q48H 07/28/19 07/28/19 History Allergies Allergy/AdvReac Type Severity Reaction Status Date / Time liraglutide [From Victoza] Allergy Rash/Hives Verified 07/28/19 18:03 Physical Exam Vitals: Vital Signs Temp Pulse Pulse Resp BP BP Pulse Ox 07/29/19 08:00 97.4 F L 88 16 111/76 100 07/29/19 04:00 98.0 F 78 20 118/72 99 07/29/19 00:29 97.9 F 81 20 99/64 98 07/29/19 00:00 97.9 F 81 20 99/64 98 07/28/19 20:00 97.7 F 83 26 H 111/72 99 07/28/19 19:29 97.7 F 83 26 H 111/72 99 07/28/19 19:00 98.0 F 80 22 124/97 96 07/28/19 18:00 86 20 112/87 96 07/28/19 17:00 85 20 114/97 95 07/28/19 16:30 79 16 108/94 98 07/28/19 16:22 79 22 106/80 93 L 07/28/19 16:15 76 24 90/64 95 07/28/19 16:00 80 22 107/56 94 L 07/28/19 15:45 76 22 109/73 98 07/28/19 15:30 71 20 108/65 96 07/28/19 15:15 97.9 F 76 20 109/73 94 L Intake and Output 07/28/19 07/29/19 07/29/19 22:59 06:59 14:59 Intake Total 126.167 Output Total 200 250 175 Balance -200 -250 -48.833 Intake: Intake, IV Titration 126.167 Amount Heparin Sod,Pork in 0.45% 126.167 NaCl 25,000 unit In 0.45 % NaCl 1 250ml.bag @ 7.16 UNITS/KG/HR 10 mls/hr IV .Q24H [facility] Rx#:[id number] Output: Urine 200 250 175 Other: Voiding Method Urinal Urinal Urinal # Voids 1 Weight 139.661 kg 55.5 kg Results CBC & Chem 7: 07/28/19 15:26 07/29/19 05:49 Labs: Abnormal Lab Results - Last 24 Hours (Table) 07/28/19 07/28/19 07/28/19 Range/Units 15:26 15:26 15:26 WBC 11.2 H (3.8-10.6) k/uL Neutrophils # 8.2 H (1.3-7.7) k/uL APTT (22.0-30.0) sec Sodium 136 L (137-145) mmol/L Carbon Dioxide 20 L (22-30) mmol/L BUN 27 H (9-20) mg/dL Creatinine 1.66 H (0.66-1.25) mg/dL POC Glucose (mg/dL) (75-99) mg/dL AST 75 H (17-59) U/L Total Creatine Kinase 500 H (55-170) U/L CK-MB (CK-2) 9.6 H (0.0-2.4) ng/mL Troponin I 7.090 H* (0.000-0.034) ng/mL LDL Cholesterol, Calc (0-99) mg/dL HDL Cholesterol (40-60) mg/dL Ur Specific [place] (1.001-1.035) Ur Leukocyte Esterase (Negative) Hyaline Casts (0-2) /lpf Urine Mucus (None) /hpf 07/28/19 07/28/19 07/29/19 Range/Units 16:25 20:42 00:26 WBC (3.8-10.6) k/uL Neutrophils # (1.3-7.7) k/uL APTT 50.0 H (22.0-30.0) sec Sodium (137-145) mmol/L Carbon Dioxide (22-30) mmol/L BUN (9-20) mg/dL Creatinine (0.66-1.25) mg/dL POC Glucose (mg/dL) 69 L (75-99) mg/dL AST (17-59) U/L Total Creatine Kinase (55-170) U/L CK-MB (CK-2) (0.0-2.4) ng/mL Troponin I (0.000-0.034) ng/mL LDL Cholesterol, Calc (0-99) mg/dL HDL Cholesterol (40-60) mg/dL Ur Specific [place] 1.039 H (1.001-1.035) Ur Leukocyte Esterase Trace H (Negative) Hyaline Casts 18 H (0-2) /lpf Urine Mucus Rare H (None) /hpf 07/29/19 07/29/19 07/29/19 Range/Units 01:59 05:49 05:49 WBC (3.8-10.6) k/uL Neutrophils # (1.3-7.7) k/uL APTT 54.7 H (22.0-30.0) sec Sodium 135 L (137-145) mmol/L Carbon Dioxide (22-30) mmol/L BUN 30 H (9-20) mg/dL Creatinine 1.65 H (0.66-1.25) mg/dL POC Glucose (mg/dL) (75-99) mg/dL AST (17-59) U/L Total Creatine Kinase (55-170) U/L CK-MB (CK-2) (0.0-2.4) ng/mL Troponin I 5.760 H* (0.000-0.034) ng/mL LDL Cholesterol, Calc 106 H (0-99) mg/dL HDL Cholesterol 36 L (40-60) mg/dL Ur Specific [place] (1.001-1.035) Ur Leukocyte Esterase (Negative) Hyaline Casts (0-2) /lpf Urine Mucus (None) /hpf 07/29/19 Range/Units 05:49 WBC (3.8-10.6) k/uL Neutrophils # (1.3-7.7) k/uL APTT (22.0-30.0) sec Sodium (137-145) mmol/L Carbon Dioxide (22-30) mmol/L BUN (9-20) mg/dL Creatinine (0.66-1.25) mg/dL POC Glucose (mg/dL) (75-99) mg/dL AST (17-59) U/L Total Creatine Kinase (55-170) U/L CK-MB (CK-2) (0.0-2.4) ng/mL Troponin I 5.020 H* (0.000-0.034) ng/mL LDL Cholesterol, Calc (0-99) mg/dL HDL Cholesterol (40-60) mg/dL Ur Specific [place] (1.001-1.035) Ur Leukocyte Esterase (Negative) Hyaline Casts (0-2) /lpf Urine Mucus (None) /hpf Thrombosis Risk Factor Assmnt - Choose All That Apply Any of the Below Risk Factors Present?: No Other Risk Factors: Yes Each Risk Factor Represents 3 Points: Age 75 years or older Other congenital or acquired thrombophilia - If yes, enter type in comment: No Thrombosis Risk Factor Assessment Total Risk Factor Score: 3 Thrombosis Risk Factor Assessment Level: Moderate Risk
[2019-07-29 20:58] LABS: Glucose,Whole Blood 172 mg/dL (75-99)
--- NOTE | 2019-07-29 21:05 | US ---
EXAMINATION TYPE: US kidneys/renal and bladder DATE OF EXAM: 07/29/2019 COMPARISON: CT lumbar spine June 07, 2018. CLINICAL HISTORY: CKD. CKD EXAM MEASUREMENTS: Right Kidney: 10.2 x 5.3 x 4.2 cm Left Kidney: 9.8 x 5.3 x 4.0 cm Right Kidney: No hydronephrosis or masses seen Left Kidney: No hydronephrosis or masses seen Bladder: Not Full Bilateral Jets seen: No There is no evidence for hydronephrosis at this point in time. No nephrolithiasis is seen. No markos s are identified. Bladder nondistended. IMPRESSION: No hydronephrosis is seen bilaterally.
[2019-07-29] MEDS: ATORVASTATIN 40 MG TAB PO SCH (21:30)
[2019-07-29] MEDS: FUROSEMIDE 10 MG/ML 10 ML VIAL IV SCH (21:30)
[2019-07-30 06:10] LABS: Glucose,Whole Blood 106 mg/dL (75-99)
[2019-07-30] MEDS: INSULIN ASPART (NovoLOG) 100 UNIT/ML VIAL SQ SCH ×7 (06:26→22:15)
[2019-07-30 07:49] LABS: Calcium 9.5 mg/dL (8.4-10.2); Potassium 4.2 mmol/L (3.5-5.1)
[2019-07-30] MEDS: ALBUTEROL NEBULIZED 2.5 MG/3 ML INHALATION SCH ×4 (08:43→21:34)
[2019-07-30 09:22] LABS: Glucose,Whole Blood 152 mg/dL (75-99)
[2019-07-30] MEDS: ASPIRIN 325 MG TAB PO SCH (09:40)
[2019-07-30] MEDS: SPIRONOLACTONE 25 MG TAB PO SCH (09:40)
[2019-07-30] MEDS: ENOXAPARIN 40 MG/0.4 ML SYRINGE SQ SCH (09:40)
[2019-07-30] MEDS: INSULIN DETEMIR (LEVEMIR) 100 UNIT/ML SYR SQ SCH (09:40)
[2019-07-30] MEDS: FUROSEMIDE 40 MG TAB PO SCH (09:41)
[2019-07-30] MEDS: FUROSEMIDE 10 MG/ML 10 ML VIAL IV SCH (09:41)
[2019-07-30] MEDS: METOPROLOL SUCCINATE (ER) 25 MG TAB.ER.24H PO SCH (09:41)
[2019-07-30] MEDS: FAMOTIDINE 20 MG TAB PO SCH (09:41)
[2019-07-30] MEDS: LOSARTAN 25 MG TAB PO SCH (09:41)
--- NOTE | 2019-07-30 11:03 | P.NPCON ---
History of Present Illness - Reason for Consult acute renal failure - Chief Complaint Acute kidney injury, chronic kidney disease and hemiparesis - History of Present Illness This 78-year-old male seen in consultation because of acute kidney injury chronic and with a baseline creatinine of 1.6 as chronic kidney disease stage III, additionally mild hyponatremia sodium is 135 He was admitted with left sided weakness and hemiparesis. Underwent a CTA on 07/28/2019 Creatinine went up to 1.8. He is making large amounts of urine. He is in the dialysis improving Computed tomography scan of the head was unremarkable as well as a CTA was rather unremarkable Noted diabetes for about 10 years and hypertension Also known with prostate problem, cardiac cath 2016 AICD Past Medical History Past Medical History: Diabetes Mellitus, Hyperlipidemia, Hypertension, Prostate Disorder Additional Past Medical History / Comment(s): AICD., SEE DR GRAMAJO H&P History of Any Multi-Drug Resistant Organisms: None Reported Past Surgical History: AICD, Back Surgery, Heart Catheterization Additional Past Surgical History / Comment(s): ANGIOGRAM, HEART CATH (07/2016), AICD [employer] (02/2017) Past Anesthesia/Blood Transfusion Reactions: No Reported Reaction Type of Cardiac Device: AICD Device Placement Date:: 02/09/2017 Past Psychological History: No Psychological Hx Reported Smoking Status: Former smoker Past Alcohol Use History: None Reported Additional Past Alcohol Use History / Comment(s): QUIT SMOKING 1979, SPOKED 2PPD FOR 15 YRS Past Drug Use History: None Reported - Past Family History Mother Family Medical History: No Reported History Father Family Medical History: No Reported History Brother(s) Family Medical History: Deep Vein Thrombosis (DVT) Medications and Allergies Home Medications Medication Instructions Recorded Confirmed Type Insulin Aspart [NovoLOG Flexpen] 20 units SQ AC-BRKFST 03/14/19 07/28/19 History Losartan [Cozaar] 12.5 mg PO DAILY #90 tab 03/14/19 07/28/19 Rx Spironolactone 12.5 mg PO DAILY #90 tablet 03/14/19 07/28/19 Rx Furosemide [Lasix] 40 mg PO DAILY 07/28/19 07/28/19 History Insulin Aspart [NovoLOG Flexpen] 10 units SQ AC-LUNCH 07/28/19 07/28/19 History Insulin Aspart [NovoLOG Flexpen] 25 units SQ AC-SUPPER 07/28/19 07/28/19 History Insulin Detemir [Levemir Flextouch] 110 units SQ DAILY 07/28/19 07/28/19 History Metolazone [Zaroxolyn] 2.5 mg PO Q48H 07/28/19 07/28/19 History Allergies Allergy/AdvReac Type Severity Reaction Status Date / Time liraglutide [From Victoza] Allergy Rash/Hives Verified 07/28/19 18:03 Physical Exam Vitals: Vital Signs Temp Pulse Pulse Resp BP Pulse Ox 07/30/19 08:52 80 07/30/19 08:43 80 07/30/19 04:00 74 18 120/74 97 07/30/19 00:00 73 16 114/68 97 07/29/19 20:32 78 18 112/63 97 07/29/19 20:23 84 07/29/19 20:17 85 07/29/19 20:00 85 18 07/29/19 15:15 98 F 85 18 113/75 98 07/29/19 12:00 97.9 F 83 18 129/88 96 Intake and Output 07/29/19 07/30/19 07/30/19 22:59 06:59 14:59 Intake Total 240 Output Total 1150 1650 300 Balance -1150 -1650 -60 Intake: Oral 240 Output: Urine 1150 1650 300 Other: Voiding Method Urinal Urinal # Voids 1 1 Weight 131.5 kg On examination is awake alert oriented comfortable has mild left hemiparesis HEENT exam no JVP neck is supple no facial asymmetry Lungs are clear to auscultation good air entry bilaterally Heart sounds are unremarkable no murmur rub gallop Abdomen soft nontender obese Extremity exam was no edema Neurologically awake alert oriented but slight weakness in the left ( Results - Lab Results Most recent lab results Calcium 9.5 mg/dL (8.4-10.2) 07/30/19 07:13 07/28/19 15:26 07/30/19 07:13 Assessment and Plan Plan: Impression 1. Acute kidney injury from possibly from CTA dated 07/28/2019. Creatinine went up from 1.6-1.8 with good urine output expected to recover 2. Chronic kidney disease stage III, nephrosclerosis with no proteinuria on urinalysis 3. Mild hyponatremia secondary acute kidney injury. Sodium is 135 4. History of acute [place], cardiac catheterization in the past with AICD 5. Hypertension blood pressure at times slightly low in the 90s Recommendation 1. Patient is currently on spironolactone and metolazone losartan and Lasix. I would hold the metolazone because of the low blood pressures, and lack of any edema. 2. Try to maintain a bladder between 110 to 1:30. 3. Repeat labs tomorrow 4. Watch for hyperkalemia. 5. Expect recovery of renal function Thank you for this consultation we'll continue to follow
[2019-07-30 11:40] LABS: Glucose,Whole Blood 116 mg/dL (75-99)
[2019-07-30] MEDS ORDERED: FUROSEMIDE 10 MG/ML 10 ML VIAL IV STA (12:37)
[2019-07-30 16:38] LABS: Glucose,Whole Blood 142 mg/dL (75-99)
--- NOTE | 2019-07-30 17:14 | P.PN ---
Progress Note - Text Progress Note Date: 07/30/19 Chief Complaint: left-sided weakness History of presenting complaint: This is a 78-year-old patient being followed by Dr. Morgan. Car Sander is Dr. Longoria. Chronic stable medical conditions include diabetes mellitus type 2, hyperlipidemia, hypertension, BPH,. Has ejection fraction of 20% and has an AICD for nonsustained V. tach. Also being followed by Dr. tugger operator Dr. metcalf. Patient yesterday developed weakness on the left side both arm and leg swelling of the speech no change in swallowing. No headache. Patient ER also found to have a troponin of 7. There was no chest pain. Patient for 1 week have been progressively increasing shortness of breath before with Dr. Longoria. Especially has orthopnea. No swelling of the lower extremity. Since yesterday some improvement in the weakness on the left side in speech is started to improve. Symptoms started at 9:15 in the morning. Patient started on IV heparin the ER. Cardiac catheterization in 2017 showed normal coronaries. GLORIA in 2017 also had shown moderate mitral regurgitation with EF of 15-20% Admitted with-acute stroke, acute CA. Patient also short of breath put on IV Lasix. Today-patient feeling better with IV Lasix. And also talked oral fluid intake by drinking water. No chest pain. Left-sided weakness is better. Review of systems: Was done for constitutional, cardiovascular, GI, pulmonary. relevant finding as above Active Medications Albuterol Sulfate (Ventolin Nebulized) 2.5 mg INHALATION RT-QID [facility] Last Admin: 07/30/19 14:57 Dose: 2.5 mg Documented by: Aspirin (Aspirin) 325 mg PO DAILY [facility] Last Admin: 07/30/19 09:40 Dose: 325 mg Documented by: Atorvastatin Calcium (Lipitor) 40 mg PO HS [facility] Last Admin: 07/29/19 21:30 Dose: 40 mg Documented by: Enoxaparin Sodium (Lovenox) 40 mg SQ DAILY [facility] Last Admin: 07/30/19 09:40 Dose: 40 mg Documented by: Famotidine (Pepcid) 20 mg PO DAILY [facility] Last Admin: 07/30/19 09:41 Dose: 20 mg Documented by: Furosemide (Lasix) 40 mg PO DAILY [facility] Last Admin: 07/30/19 09:41 Dose: Not Given Documented by: Insulin Aspart (Novolog) 10 unit SQ AC-LUNCH [facility] Last Admin: 07/30/19 12:20 Dose: Not Given Documented by: Insulin Aspart (Novolog) 20 unit SQ AC-BRKFST [facility] Last Admin: 07/30/19 09:22 Dose: Not Given Documented by: Insulin Aspart (Novolog) 25 unit SQ AC-SUPPER [facility] Last Admin: 07/29/19 17:11 Dose: Not Given Documented by: Insulin Aspart (Novolog) 0 unit SQ ACHS [facility]; Protocol Last Admin: 07/30/19 12:20 Dose: Not Given Documented by: Insulin Detemir (Levemir) 80 unit SQ DAILY [facility] Last Admin: 07/30/19 09:40 Dose: 80 unit Documented by: Losartan Potassium (Cozaar) 12.5 mg PO DAILY [facility] Last Admin: 07/30/19 09:41 Dose: 12.5 mg Documented by: Metoprolol Succinate (Toprol Xl) 25 mg PO DAILY [facility] Last Admin: 07/30/19 09:41 Dose: 25 mg Documented by: Spironolactone (Aldactone) 12.5 mg PO DAILY [facility] Last Admin: 07/30/19 09:40 Dose: 12.5 mg Documented by: Physical examination: VITAL SIGNS: 97.4, 81, 20, 126/89, 99% on 2 L GENERAL: BMI 37, laying in bed, less short of breath. EYES: Pupils equal. Conjunctiva normal. HEENT: External appearance of nose and ears normal, oral cavity grossly normal. NECK: JVD possibly raised masses not palpable. HEART: First and second heart sounds are normal; no edema. LUNGS: Respiratory rate increased; clear to auscultation. ABDOMEN: Soft, nontender, liver spleen not palpable, no masses palpable. PSYCH: Alert and oriented x3; mood and affect normal. NEUROLOGICAL: Left facial weakness, power in the left arm and left leg 4/5, dysarthria.-Better INVESTIGATIONS, reviewed in the clinical context: Potassium 4.2 crit and 1.88 Dear ultrasound-unremarkable Prior testing White count 11.2 hemoglobin 40.4 platelets 276 potassium 4.5 bun 27 creatinine 1.66 Troponin I 7.0, 5.7, 5.0 EKG tracing personally reviewed by me-ventricular paced rhythm with PVCs Chest x-ray film personally reviewed by me-severe cardiomegaly, with some venous prominence Computed tomography scan of the brain-nothing acute, some age-related atrophy CT angiogram of the brain-negative 2-D echocardiogram-moderate concentric left ventricular hypertrophy, EF less than 20%, no apical thrombus VQ scan-negative for PE Assessment: -Acute non-ST elevation myocardial infarction, likely silent CA given a diabetic, POA -Acute stroke, affecting the left side with hemiparesis, dysarthria, with continued improvement -Diabetes mellitus type 2 -Essential hypertension with chronic kidney disease -Hyperlipidemia -AICD -Acute on chronic Nonischemic cardiomyopathy EF 20%, but patient having significantly orthopnea and shortness of breath coming on for last 1 week -Hypertensive heart disease -Chronic kidney disease stage III from nephrosclerosis and diabetic nephropathy Plan: Give 1 dose of IV Lasix 60 mg. Other medications to continue. Care was discussed with the patient. Restrict fluid intake to 1800 mL a day. Follow with cardiology and nephrology. --
[2019-07-30 20:17] LABS: Glucose,Whole Blood 140 mg/dL (75-99)
[2019-07-30] MEDS: ATORVASTATIN 40 MG TAB PO SCH (22:15)
[2019-07-31 06:27] LABS: Glucose,Whole Blood 66 mg/dL (75-99)
[2019-07-31] MEDS: INSULIN ASPART (NovoLOG) 100 UNIT/ML VIAL SQ SCH ×7 (06:32→21:24)
[2019-07-31 06:47] LABS: Glucose,Whole Blood 81 mg/dL (75-99)
[2019-07-31 07:05] LABS: Glucose,Whole Blood 103 mg/dL (75-99)
[2019-07-31 07:50] LABS: Albumin 4.6 g/dL (3.5-5.0); Calcium 9.8 mg/dL (8.4-10.2); Potassium 4.4 mmol/L (3.5-5.1); Total Bilirubin 1.1 mg/dL (0.2-1.3); Total Protein 8.5 g/dL (6.3-8.2)
[2019-07-31] MEDS: ALBUTEROL NEBULIZED 2.5 MG/3 ML INHALATION SCH ×4 (08:02→21:33)
[2019-07-31] MEDS: ENOXAPARIN 40 MG/0.4 ML SYRINGE SQ SCH (09:17)
[2019-07-31] MEDS: FUROSEMIDE 40 MG TAB PO SCH (09:17)
[2019-07-31] MEDS: FAMOTIDINE 20 MG TAB PO SCH (09:18)
[2019-07-31] MEDS: METOPROLOL SUCCINATE (ER) 25 MG TAB.ER.24H PO SCH (09:18)
[2019-07-31] MEDS: SPIRONOLACTONE 25 MG TAB PO SCH (09:18)
[2019-07-31] MEDS: ASPIRIN 325 MG TAB PO SCH (09:18)
[2019-07-31] MEDS: LOSARTAN 25 MG TAB PO SCH (09:18)
[2019-07-31] MEDS: INSULIN DETEMIR (LEVEMIR) 100 UNIT/ML SYR SQ SCH (09:18)
[2019-07-31 09:24] LABS: Glucose,Whole Blood 108 mg/dL (75-99)
--- NOTE | 2019-07-31 10:39 | P.PN ---
Subjective Progress Note Date: 07/31/19 Principal diagnosis: This is a 78-year-old male seen in consultation because of acute kidney injury, he had a CTA done on 07/28/2019. Creatinine went up from 1.6 and is now up to 2.24. He was admitted with left-sided hemiparalysis The computed tomography scan of the head without contrast and the CTA of the head both were negative. His perfusion scan was negative for PE and Doppler flow the leg veins were unremarkable. His urine output is 1600 mL for the last 24 hours. Vital signs are stable. Continues to feel short of breath. Hemoglobin is 14.4. Is known with chronic kidney disease, stage III, nephrosclerosis with a baseline creatinine of 1.6 and no proteinuria, history of diabetes mellitus, severe coronary artery disease with cardiac catheterization AICD, ejection fraction 15- 20%. Objective - Vital Signs Vital signs: Vital Signs Temp 97.7 F 07/31/19 08:00 Pulse 74 07/31/19 08:17 Resp 20 07/31/19 08:00 BP 123/83 07/31/19 08:00 Pulse Ox 95 07/31/19 08:00 Intake & Output 07/30/19 07/31/19 07/31/19 18:59 06:59 18:59 Intake Total 480 0 Output Total 1400 200 0 Balance -920 -200 0 Weight 130.5 kg Intake: Oral 480 0 Output: Urine 1400 200 0 Other: Voiding Method Urinal # Voids 2 Exam she is awake alert oriented sitting in a chair. HEENT exam no JVP neck is supple no facial asymmetry Lungs are clear to auscultation fair air entry bilaterally Heart sounds unremarkable for any murmur rub gallop Abdomen soft nontender Extremity exam was no edema Neurologically awake alert oriented mild left-sided hemiparesis - Labs CBC & Chem 7: 07/28/19 15:26 07/31/19 07:04 Labs: Abnormal Lab Results - Last 24 Hours (Table) 07/30/19 07/30/19 07/30/19 Range/Units 11:34 16:37 20:15 BUN (9-20) mg/dL Creatinine (0.66-1.25) mg/dL Glucose (74-99) mg/dL POC Glucose (mg/dL) 116 H 142 H 140 H (75-99) mg/dL Total Protein (6.3-8.2) g/dL 07/31/19 07/31/19 07/31/19 Range/Units 06:25 07:03 07:04 BUN 50 H (9-20) mg/dL Creatinine 2.24 H (0.66-1.25) mg/dL Glucose 102 H (74-99) mg/dL POC Glucose (mg/dL) 66 L 103 H (75-99) mg/dL Total Protein 8.5 H (6.3-8.2) g/dL 07/31/19 Range/Units 09:16 BUN (9-20) mg/dL Creatinine (0.66-1.25) mg/dL Glucose (74-99) mg/dL POC Glucose (mg/dL) 108 H (75-99) mg/dL Total Protein (6.3-8.2) g/dL Assessment and Plan Plan: Impression 1. Acute kidney injury from from CTA head dated 07/28/2019. Creatinine went up from 1.6-1.8 > further to 2.2 with good urine output expected to recover 2. Chronic kidney disease stage III, nephrosclerosis with no proteinuria on urinalysis 3. Mild hyponatremia secondary acute kidney injury. Sodium is 135, is up to 137 4. History of acute [place], cardiac catheterization in the past with AICD, cardiomyopathy ejection fraction is 20% 5. Hypertension blood pressure at times slightly low in the 90s. Blood pressure is better. Recommendation 1. Hold losartan temporarily, hold all diuretics temporarily. 2. Maintain blood pressure between 110 to 1:30 3. Repeat labs tomorrow 4. Expect recovery of renal function
[2019-07-31] MEDS ORDERED: LOSARTAN 25 MG TAB PO SCH (11:00)
[2019-07-31 11:32] LABS: Glucose,Whole Blood 107 mg/dL (75-99)
--- NOTE | 2019-07-31 12:58 | PN ---
PROGRESS NOTE Pedro is a 78-year-old gentleman who is admitted to the hospital with CVA with left- sided weakness and had elevated troponin. He has history of hypertension, diabetes, and AICD. He has mild nonobstructive CAD. This morning, he is doing better. Left- sided weakness has improved. He is eager to go home. EXAM: Vital signs are stable. There is jugular venous distention. Chest exam reveals good air entry bilaterally. Heart exam reveals first and second heart sounds and a systolic murmur left lower sternal border. Abdomen is soft. Exam of extremities did not reveal any edema. LABS: Showed a BUN of 50, creatinine of 2.2. ASSESSMENT: 1. Cerebrovascular accident. 2. Non-ST segment elevation myocardial infarction. 3. Dilated cardiomyopathy, status post AICD. PLAN: The plan at this stage is to treat him with optimal medical therapy including aspirin, Lipitor, Toprol, and resume the Cozaar. He will undergo cardiac catheterization once the neurological status fully improves as an outpatient. MMODL / IJN: [id number] /
[2019-07-31 16:25] LABS: Glucose,Whole Blood 145 mg/dL (75-99)
--- NOTE | 2019-07-31 17:10 | P.PN ---
Progress Note - Text Progress Note Date: 07/31/19 Chief Complaint: left-sided weakness History of presenting complaint: This is a 78-year-old patient being followed by Dr. Morgan. Medical Scientist is Dr. Longoria. Chronic stable medical conditions include diabetes mellitus type 2, hyperlipidemia, hypertension, BPH,. Has ejection fraction of 20% and has an AICD for nonsustained V. tach. Also being followed by Dr. assistant professor of economics Dr. metcalf. Patient yesterday developed weakness on the left side both arm and leg swelling of the speech no change in swallowing. No headache. Patient ER also found to have a troponin of 7. There was no chest pain. Patient for 1 week have been progressively increasing shortness of breath before with Dr. Longoria. Especially has orthopnea. No swelling of the lower extremity. Since yesterday some improvement in the weakness on the left side in speech is started to improve. Symptoms started at 9:15 in the morning. Patient started on IV heparin the ER. Cardiac catheterization in 2017 showed normal coronaries. GLORIA in 2017 also had shown moderate mitral regurgitation with EF of 15-20% Admitted with-acute stroke, acute [place]. Patient also short of breath put on IV Lasix. Today-feeling better. Breathing is improved. Improved with left-sided weakness. Review of systems: Was done for constitutional, cardiovascular, GI, pulmonary. relevant finding as above Active Medications Albuterol Sulfate (Ventolin Nebulized) 2.5 mg INHALATION RT-QID [facility] Last Admin: 07/31/19 15:20 Dose: Not Given Documented by: Aspirin (Aspirin) 325 mg PO DAILY [facility] Last Admin: 07/31/19 09:18 Dose: 325 mg Documented by: Atorvastatin Calcium (Lipitor) 40 mg PO HS [facility] Last Admin: 07/30/19 22:15 Dose: 40 mg Documented by: Enoxaparin Sodium (Lovenox) 40 mg SQ DAILY [facility] Last Admin: 07/31/19 09:17 Dose: 40 mg Documented by: Famotidine (Pepcid) 20 mg PO DAILY [facility] Last Admin: 07/31/19 09:18 Dose: 20 mg Documented by: Insulin Aspart (Novolog) 10 unit SQ AC-LUNCH [facility] Last Admin: 07/31/19 11:36 Dose: Not Given Documented by: Insulin Aspart (Novolog) 20 unit SQ AC-BRKFST [facility] Last Admin: 07/31/19 06:32 Dose: Not Given Documented by: Insulin Aspart (Novolog) 25 unit SQ AC-SUPPER [facility] Last Admin: 07/31/19 16:28 Dose: Not Given Documented by: Insulin Aspart (Novolog) 0 unit SQ ACHS [facility]; Protocol Last Admin: 07/31/19 16:29 Dose: Not Given Documented by: Insulin Detemir (Levemir) 80 unit SQ DAILY [facility] Last Admin: 07/31/19 09:18 Dose: Not Given Documented by: Losartan Potassium (Cozaar) 25 mg PO DAILY [facility] Last Admin: 07/31/19 11:52 Dose: 25 mg Documented by: Metoprolol Succinate (Toprol Xl) 25 mg PO DAILY [facility] Last Admin: 07/31/19 09:18 Dose: 25 mg Documented by: Physical examination: VITAL SIGNS: 97.6, 70, 20, 102/49, 94% on room air GENERAL:sitting on the chair, more comfortable EYES: Pupils equal. Conjunctiva normal. HEENT: External appearance of nose and ears normal, oral cavity grossly normal. NECK: JVD possibly raised masses not palpable. HEART: First and second heart sounds are normal; no edema. LUNGS: Respiratory rate increased; clear to auscultation. ABDOMEN: Soft, nontender, liver spleen not palpable, no masses palpable. PSYCH: Alert and oriented x3; mood and affect normal. NEUROLOGICAL: Left facial weakness, power in the left arm and left leg 4/5, dysarthria.-improving INVESTIGATIONS, reviewed in the clinical context: Potassium 4.4 bun 50 creatinine 2.24 Prior testing White count 11.2 hemoglobin 40.4 platelets 276 potassium 4.5 bun 27 creatinine 1.66 Troponin I 7.0, 5.7, 5.0 EKG tracing personally reviewed by me-ventricular paced rhythm with PVCs Chest x-ray film personally reviewed by me-severe cardiomegaly, with some venous prominence Computed tomography scan of the brain-nothing acute, some age-related atrophy CT angiogram of the brain-negative 2-D echocardiogram-moderate concentric left ventricular hypertrophy, EF less than 20%, no apical thrombus VQ scan-negative for PE renal ultrasound-unremarkable Assessment: -Acute non-ST elevation myocardial infarction, likely silent IA given a diabetic, POA -Acute stroke, affecting the left side with hemiparesis, dysarthria, with continued improvement -Acute kidney injury likely contrast induced and patient is on diuretics. Some worsening -Diabetes mellitus type 2 -Essential hypertension with chronic kidney disease -Hyperlipidemia -AICD -Acute on chronic Nonischemic cardiomyopathy EF 20%, but patient having significantly orthopnea and shortness of breath coming on for last 1 week -Hypertensive heart disease -Chronic kidney disease stage III from nephrosclerosis and diabetic nephropathy Plan: patient seen by nephrology. Losartan and diuretics temporarily held. Repeat labs in the morning. Care discussed with the patient. Consult Dr. Simon for inpatient rehab --
[2019-07-31] MEDS ORDERED: HEPARIN SODIUM,PORCINE 5,000 UNIT/ML 1 ML VIAL IV PRN (17:52)
[2019-07-31] MEDS ORDERED: HEPARIN SODIUM,PORCINE 5,000 UNIT/ML 1 ML VIAL IV ONE (17:52)
[2019-07-31] MEDS ORDERED: HEPARIN SOD,PORK IN 0.45% NACL 25,000 UNIT in 0.45% NACL 1 250ML.BAG IV SCH (18:00)
[2019-07-31] MEDS ORDERED: NITROGLYCERIN OINT 1 INCH/GM PACKET TOPICAL SCH (18:00)
[2019-07-31 18:21] LABS: Basophils # (A) 0.1 k/uL (0-0.2); Basophils % (A) 1 %; Eosinophils # (A) 0.4 k/uL (0-0.7); Eosinophils % (A) 4 %; HCT 50.4 % (39.0-53.0); Lymphocytes # (A) 2.2 k/uL (1.0-4.8); Lymphocytes % (A) 20 %; MCH 26.9 pg (25.0-35.0); MCHC 31.7 g/dL (31.0-37.0); MCV 84.8 fL (80.0-100.0); Mean Platelet Volume 8.3; Monocytes # (A) 0.8 k/uL (0-1.0); Monocytes % (A) 7 %; Neutrophils # (A) 7.2 k/uL (1.3-7.7); Neutrophils % (A) 66 %; Platelet Count 260 k/uL (150-450); RBC 5.94 m/uL (4.30-5.90); RDW 14.8 % (11.5-15.5)
[2019-07-31 18:28] LABS: Partial Thromboplastin Time 25.8 sec (22.0-30.0); Prothrombin Time 10.8 sec (9.0-12.0)
[2019-07-31] MEDS ORDERED: SODIUM CHLORIDE 0.9% 1,000 ML in EMPTY BAG 1 BAG IV ONE (18:53)
[2019-07-31] MEDS ORDERED: ASPIRIN 325 MG TAB PO STA (18:53)
[2019-07-31] MEDS ORDERED: ATORVASTATIN 80 MG TAB PO STA (18:53)
[2019-07-31] MEDS ORDERED: ALPRAZolam 0.25 MG TAB PO PRN (18:53)
[2019-07-31] MEDS ORDERED: ALPRAZolam 0.5 MG TAB PO PRN (18:53)
[2019-07-31] MEDS ORDERED: NITROGLYCERIN SL TABS 0.4 MG TAB SUBLINGUAL PRN (18:53)
[2019-07-31 18:58] LABS: Calcium 9.4 mg/dL (8.4-10.2); Potassium 4.4 mmol/L (3.5-5.1)
[2019-07-31] MEDS: ATORVASTATIN 40 MG TAB PO SCH (19:39)
[2019-07-31 19:46] LABS: Glucose,Whole Blood 199 mg/dL (75-99)
[2019-07-31] MEDS ORDERED: LIDOCAINE 1% INJ 10MG/ML (20 ML MDV) ONE (20:44)
[2019-07-31] MEDS ORDERED: VERAPAMIL 2.5 MG/ML 2 ML AMP ONE (20:44)
[2019-07-31] MEDS ORDERED: MIDAZOLAM 2 MG/2 ML VIAL IV ONE (20:49)
[2019-07-31] MEDS ORDERED: LIDOCAINE 1% INJ 10MG/ML (20 ML MDV) SQ ONE (20:49)
[2019-07-31] MEDS ORDERED: VERAPAMIL SYRINGE (5 MG/10 ML) INTRAARTER ONE (20:51)
[2019-07-31] MEDS ORDERED: IV FLUID CONTINUATION 950 ML IV ONE (20:51)
[2019-07-31] MEDS ORDERED: IOPAMIDOL-370 100ML BTL INJ ONE (20:59)
--- NOTE | 2019-07-31 21:04 | P.PCN ---
Date of Procedure: 07/31/19 Operative Findings: CARDIAC CATHETERIZATION PERFORMING PHYSICIAN: Sean Osman MD, RPVI PROCEDURE PERFORMED: 1. Selective right and left coronary angiogram INDICATION: This is a 78-year-old gentleman with history of cardiomyopathy and status post AICD as well as diabetes, hypertension, dyslipidemia, presented to the hospital with chest discomfort and ruled in for acute non-ST elevation myocardial infarction. Because of that the heart catheterization was advised. COMPLICATION: None APPROACH: Right radial artery LEVEL OF SEDATION: Moderate with sedation length of 11 minutes PROCEDURE DESCRIPTION: After obtaining an informed consent, the patient was brought to cardiac quality assurance lab technician. Local anesthesia was performed using lidocaine subcutaneously. The right radial artery was cannulated using Seldinger technique, the guidewire passed easily, following that we advanced a 5-Martiniquais sheath dilator assembly, the wire and dilator were removed and sheath was flushed. Following that, 2 mg of verapamil along with 5000 unit heparin were given. Selective right and left coronary angiogram using a 6-Martiniquais JR4 and JL 3.5 catheters. The procedure was completed there was no complication. SELECTIVE CORONARY ANGIOGRAM: The right coronary artery: Is a large caliber vessel and a dominant vessel. Its angiographically normal. Distally bifurcates into PDA and PLV branches and both appeared to be angiographically normal Left main: Is angiographically normal. Bifurcates into LCx and LAD The left circumflex: Is a large caliber vessel and nondominant vessel. The LCx is angiographically normal. In the very proximal portion gives rises into very high takeoff OM which work as a ramus intermedius and appears to be angiographically normal. The left anterior descending artery: Is angiographically normal. The proximal portion gives rises into the first diagonal branch which is a large caliber vessel seems to be angiographically normal. The mid and distal LAD appears to be angiographically normal CONCLUSION: Normal coronary angiogram POSTPROCEDURE MANAGEMENT: Medical treatment
[2019-07-31] MEDS ORDERED: RX INFO: IV CONTRAST WAS GIVEN 1 EACH MISC MISCELLANE PRN (21:05)
[2019-07-31 21:15] LABS: Glucose,Whole Blood 232 mg/dL (75-99)
[2019-07-31] MEDS ORDERED: SODIUM CHLORIDE 0.9% 1,000 ML IV SCH (21:15)
[2019-08-01] MEDS: NITROGLYCERIN OINT 1 INCH/GM PACKET TOPICAL SCH ×2 (00:14→08:51)
[2019-08-01 06:07] LABS: Glucose,Whole Blood 100 mg/dL (75-99)
[2019-08-01] MEDS: INSULIN ASPART (NovoLOG) 100 UNIT/ML VIAL SQ SCH ×6 (06:08→20:22)
--- NOTE | 2019-08-01 06:24 | P.CONS ---
History of Present Illness - Chief Complaint Gait disturbance, left hemiparesthesias - History of Present Illness I had the opportunity to see patient for inpatient rehab consultation with regard to gait disturbance. He was admitted to [facility] July 27 acute onset left-sided weakness for which she was seen by neurology, Dr. Chirinos. Also seen by Dr. Soriano for acute on chronic kidney disease. Head CT with mild to moderate atrophy, age-related change and chronic change. Angiogram CT with minimal plaqu es. Chest x-ray with moderate cardiomegaly. Lower extremity Doppler negative for DVT right or left leg. Perfusion scan negative for PE right or left. Abdominal ultrasound negative for hydronephrosis. PT reports minimal assistance for transfers and gait 24 feet, hand-held assist. OT reports supervision for upper dressing and minimal assistance for lower dressing, bathing, toileting and functional mobility. Speech therapy reports that communication, cognition and swallow all within functional limits. Previous functional history as elicited patient: 78-year-old right-handed male who is lives and 2 floor home with . Both are retired. does cooking and laundry. They don't own a car independent daughter for transportation. Patient independent with standing shower and gait without device. Dr. Morgan is PMD. Denies tobacco or alcohol. Family history father was a smoker. Review of Systems Review of systems: ENT: Denies sneezes or discharge. Eyes: Denies discharge or photophobia. Cardiac: Denies chest pain or palpitation. Pulmonary: Denies cough or shortness of breath. Gastrointestinal: Denies nausea, emesis, constipation, diarrhea. Genitourinary: Denies discharge or frequency. Musculoskeletal: Denies muscle or bone aches. Neurologic: Now resolved left-sided weakness. Endocrine: Denies shakes or sweats. Oncology: Denies cancers. Dermatologic: Denies rash, itching, pruritus. ALLERGY/immunology: Denies sneezes, rashes. Past Medical History Past Medical History: Diabetes Mellitus, Hyperlipidemia, Hypertension, Prostate Disorder Additional Past Medical History / Comment(s): AICD., SEE DR GRAMAJO H&P History of Any Multi-Drug Resistant Organisms: None Reported Past Surgical History: AICD, Back Surgery, Heart Catheterization Additional Past Surgical History / Comment(s): ANGIOGRAM, HEART CATH (07/2016), AICD RatePoint (02/2017) Past Anesthesia/Blood Transfusion Reactions: No Reported Reaction Type of Cardiac Device: AICD Device Placement Date:: 02/09/2017 Past Psychological History: No Psychological Hx Reported Smoking Status: Former smoker Past Alcohol Use History: None Reported Additional Past Alcohol Use History / Comment(s): QUIT SMOKING 1979, SPOKED 2PPD FOR 15 YRS Past Drug Use History: None Reported - Past Family History Mother Family Medical History: No Reported History Father Family Medical History: No Reported History Brother(s) Family Medical History: Deep Vein Thrombosis (DVT) Medications and Allergies Home Medications Medication Instructions Recorded Confirmed Type Insulin Aspart [NovoLOG Flexpen] 20 units SQ AC-BRKFST 03/14/19 07/28/19 History Losartan [Cozaar] 12.5 mg PO DAILY #90 tab 03/14/19 07/28/19 Rx Spironolactone 12.5 mg PO DAILY #90 tablet 03/14/19 07/28/19 Rx Furosemide [Lasix] 40 mg PO DAILY 07/28/19 07/28/19 History Insulin Aspart [NovoLOG Flexpen] 10 units SQ AC-LUNCH 07/28/19 07/28/19 History Insulin Aspart [NovoLOG Flexpen] 25 units SQ AC-SUPPER 07/28/19 07/28/19 History Insulin Detemir [Levemir Flextouch] 110 units SQ DAILY 07/28/19 07/28/19 History Metolazone [Zaroxolyn] 2.5 mg PO Q48H 07/28/19 07/28/19 History Allergies Allergy/AdvReac Type Severity Reaction Status Date / Time liraglutide [From Victoza] Allergy Rash/Hives Verified 07/28/19 18:03 Physical Exam Vitals: Vital Signs Temp Pulse Pulse Resp BP Pulse Ox 08/01/19 04:00 78 20 91/62 98 08/01/19 00:50 80 18 107/64 94 L 08/01/19 00:00 70 18 96/68 97 07/31/19 23:50 70 18 96/68 97 07/31/19 22:50 66 18 119/65 94 L 07/31/19 22:20 70 18 126/71 98 07/31/19 21:50 82 60 18 98/57 93 L 07/31/19 21:35 82 20 125/65 98 07/31/19 21:33 82 07/31/19 21:15 82 18 120/64 91 L 07/31/19 20:00 97.7 F 80 22 101/73 98 07/31/19 18:45 84 122/75 07/31/19 17:52 84 114/83 07/31/19 16:00 97.6 F 70 20 102/49 94 L 07/31/19 12:00 20 121/41 98 07/31/19 11:37 78 07/31/19 11:28 76 07/31/19 10:40 98 07/31/19 08:17 74 07/31/19 08:02 72 07/31/19 08:00 97.7 F 72 20 123/83 95 Intake and Output 07/31/19 07/31/19 08/01/19 14:59 22:59 06:59 Intake Total 240 246.167 240 Output Total 0 200 350 Balance 240 46.167 -110 Intake: IV 100 Intake, IV Titration 26.167 Amount Heparin Sod,Pork in 0.45% 26.167 NaCl 25,000 unit In 0.45 % NaCl 1 250ml.bag @ 7. 663 UNITS/KG/HR 10 mls/hr IV .Q24H [facility] Rx#: [id number] Oral 240 120 240 Output: Urine 0 200 350 Other: # Voids 1 1 # Bowel Movements 1 Weight 125.9 kg Skin: Atrophic, intact. General: Medium build and comfortable appearance. Head: Normocephalic, atraumatic. Eyes: Symmetric. Pupils equal round. Ears: Symmetric. Hearing within normal limits. Mouth: Clear. Neck: Supple. Carotid without bruit. Cardiac: Regular rate and rhythm. Lungs: Clear anteriorly and posteriorly. Abdomen: Soft active nontender. Extremities: Normal tone. Neurological: Mental status: Alert, cooperative, pleasant. Cranial nerves: Symmetric facial tone and trapezius. Motor: Normal strength and isolation all 4 limbs. Sensation: Intact throughout. DTRs: Symmetric and equal throughout. Mobility: Sits without assistance or verbal cueing or loss of balance. Results CBC & Chem 7: 07/31/19 18:06 07/31/19 18:06 Labs: Abnormal Lab Results - Last 24 Hours (Table) 07/31/19 07/31/19 07/31/19 Range/Units 06:25 07:03 07:04 WBC (3.8-10.6) k/uL RBC (4.30-5.90) m/uL Sodium (137-145) mmol/L Chloride (98-107) mmol/L BUN 50 H (9-20) mg/dL Creatinine 2.24 H (0.66-1.25) mg/dL Glucose 102 H (74-99) mg/dL POC Glucose (mg/dL) 66 L 103 H (75-99) mg/dL Troponin I (0.000-0.034) ng/mL Total Protein 8.5 H (6.3-8.2) g/dL 07/31/19 07/31/19 07/31/19 Range/Units 09:16 11:31 16:24 WBC (3.8-10.6) k/uL RBC (4.30-5.90) m/uL Sodium (137-145) mmol/L Chloride (98-107) mmol/L BUN (9-20) mg/dL Creatinine (0.66-1.25) mg/dL Glucose (74-99) mg/dL POC Glucose (mg/dL) 108 H 107 H 145 H (75-99) mg/dL Troponin I (0.000-0.034) ng/mL Total Protein (6.3-8.2) g/dL 07/31/19 07/31/19 07/31/19 Range/Units 18:06 18:06 18:06 WBC 11.0 H (3.8-10.6) k/uL RBC 5.94 H (4.30-5.90) m/uL Sodium 134 L (137-145) mmol/L Chloride 95 L (98-107) mmol/L BUN 57 H (9-20) mg/dL Creatinine 2.56 H (0.66-1.25) mg/dL Glucose 144 H (74-99) mg/dL POC Glucose (mg/dL) (75-99) mg/dL Troponin I 3.100 H* (0.000-0.034) ng/mL Total Protein (6.3-8.2) g/dL 07/31/19 07/31/19 08/01/19 Range/Units 19:45 21:14 06:06 WBC (3.8-10.6) k/uL RBC (4.30-5.90) m/uL Sodium (137-145) mmol/L Chloride (98-107) mmol/L BUN (9-20) mg/dL Creatinine (0.66-1.25) mg/dL Glucose (74-99) mg/dL POC Glucose (mg/dL) 199 H 232 H 100 H (75-99) mg/dL Troponin I (0.000-0.034) ng/mL Total Protein (6.3-8.2) g/dL Assessment and Plan (1) Cerebrovascular accident (CVA) Current Visit: Yes Status: Acute Code(s): I63.9 - CEREBRAL INFARCTION, UNSPECIFIED SNOMED Code(s): 544802695 (2) Non-STEMI (non-ST elevated myocardial infarction) Current Visit: Yes Status: Acute Code(s): I21.4 - NON-ST ELEVATION (NSTEMI) MYOCARDIAL INFARCTION SNOMED Code(s): 13733620 Plan: Impression: 1. Gait disturbance left-sided weakness related to stroke versus TIA. 2. Non-STEMI. 3. Diabetes. 4. Hypertension. 5. Acute on chronic kidney disease. 6. Dyslipidemia. Comments and plan: Have reviewed PT, OT, [facility] notes the patient was safety concerns as of July 28. Patient now feels improved and in fact is neurologic exam is symmetric. Would await therapy notes today. Anticipate patient may be ready for home with support services previous discretion. Will however follow for possible safety concerns noted by therapies possibly today.
[2019-08-01 06:36] LABS: Basophils # (A) 0.1 k/uL (0-0.2); Basophils % (A) 1 %; Eosinophils # (A) 0.3 k/uL (0-0.7); Eosinophils % (A) 3 %; HCT 47.2 % (39.0-53.0); HGB 14.7 gm/dL (13.0-17.5); Lymphocytes # (A) 1.7 k/uL (1.0-4.8); Lymphocytes % (A) 16 %; MCH 26.8 pg (25.0-35.0); MCHC 31.2 g/dL (31.0-37.0); MCV 85.7 fL (80.0-100.0); Mean Platelet Volume 8.8; Monocytes # (A) 1.2 k/uL (0-1.0); Monocytes % (A) 11 %; Neutrophils # (A) 7.3 k/uL (1.3-7.7); Neutrophils % (A) 67 %; Platelet Count 211 k/uL (150-450); RBC 5.51 m/uL (4.30-5.90); RDW 14.7 % (11.5-15.5); WBC 10.9 k/uL (3.8-10.6)
[2019-08-01 06:47] LABS: Calcium 8.8 mg/dL (8.4-10.2); Magnesium 2.4 mg/dL (1.6-2.3); Potassium 5.2 mmol/L (3.5-5.1)
[2019-08-01] MEDS: ALBUTEROL NEBULIZED 2.5 MG/3 ML INHALATION SCH ×4 (07:50→19:53)
[2019-08-01] MEDS: ASPIRIN 81 MG PO SCH (08:57)
[2019-08-01] MEDS: FAMOTIDINE 20 MG TAB PO SCH (08:57)
[2019-08-01] MEDS: INSULIN DETEMIR (LEVEMIR) 100 UNIT/ML SYR SQ SCH (08:57)
[2019-08-01 11:46] LABS: Glucose,Whole Blood 137 mg/dL (75-99)
[2019-08-01] MEDS ORDERED: FUROSEMIDE 10 MG/ML 2 ML VIAL IV ONE (11:50)
--- NOTE | 2019-08-01 11:52 | P.PN ---
Subjective Patient is seen in follow-up for acute kidney injury on chronic kidney disease. Renal function is improving. Creatinine 2.26 this morning. Patient underwent coronary angiogram on July 30 which was normal. IV fluids were discontinued this morning. He has been voiding. Denies chest pain. Still complains of intermittent dyspnea. Vital signs are stable. General: The patient appeared well nourished and normally developed. HEENT: Head exam is unremarkable. Neck is without jugular venous distension. LUNGS: Lungs are clear to auscultation and percussion. Breath sounds decreased. HEART: Rate and Rhythm are regular. First and second heart sounds normal. No murmurs, rubs or gallops. ABDOMEN: Abdominal exam reveals normal bowel sounds. Non-tender and non- distended. No evidence of peritonitis. EXTREMITITES: No clubbing, cyanosis, or edema. Objective - Vital Signs Vital signs: Vital Signs Temp 97.7 F 08/01/19 11:15 Pulse 80 08/01/19 11:30 Resp 20 08/01/19 11:15 BP 89/49 08/01/19 08:00 Pulse Ox 100 08/01/19 11:15 Intake & Output 07/31/19 08/01/19 08/01/19 18:59 06:59 18:59 Intake Total 360 366.167 840 Output Total 200 350 375 Balance 160 16.167 465 Weight 125.9 kg Intake: IV 100 600 Sodium Chloride 0.9% 1, 600 000 ml @ 75 mls/hr IV . [id number] [facility] Rx#:[id number] Intake, IV Titration 26.167 Amount Heparin Sod,Pork in 0.45% 26.167 NaCl 25,000 unit In 0.45 % NaCl 1 250ml.bag @ 7. 663 UNITS/KG/HR 10 mls/hr IV .Q24H [facility] Rx#: [id number] Oral 360 240 240 Output: Urine 200 350 275 Emesis 100 Other: # Voids 1 1 # Bowel Movements 1 - Labs CBC & Chem 7: 08/01/19 05:41 08/01/19 05:41 Labs: Abnormal Lab Results - Last 24 Hours (Table) 07/31/19 07/31/19 07/31/19 Range/Units 16:24 18:06 18:06 WBC 11.0 H (3.8-10.6) k/uL RBC 5.94 H (4.30-5.90) m/uL Monocytes # (0-1.0) k/uL Sodium (137-145) mmol/L Potassium (3.5-5.1) mmol/L Chloride (98-107) mmol/L Carbon Dioxide (22-30) mmol/L BUN (9-20) mg/dL Creatinine (0.66-1.25) mg/dL Glucose (74-99) mg/dL POC Glucose (mg/dL) 145 H (75-99) mg/dL Magnesium (1.6-2.3) mg/dL Troponin I 3.100 H* (0.000-0.034) ng/mL 07/31/19 07/31/19 07/31/19 Range/Units 18:06 19:45 21:14 WBC (3.8-10.6) k/uL RBC (4.30-5.90) m/uL Monocytes # (0-1.0) k/uL Sodium 134 L (137-145) mmol/L Potassium (3.5-5.1) mmol/L Chloride 95 L (98-107) mmol/L Carbon Dioxide (22-30) mmol/L BUN 57 H (9-20) mg/dL Creatinine 2.56 H (0.66-1.25) mg/dL Glucose 144 H (74-99) mg/dL POC Glucose (mg/dL) 199 H 232 H (75-99) mg/dL Magnesium (1.6-2.3) mg/dL Troponin I (0.000-0.034) ng/mL 08/01/19 08/01/19 08/01/19 Range/Units 05:41 05:41 06:06 WBC 10.9 H (3.8-10.6) k/uL RBC (4.30-5.90) m/uL Monocytes # 1.2 H (0-1.0) k/uL Sodium 133 L (137-145) mmol/L Potassium 5.2 H (3.5-5.1) mmol/L Chloride (98-107) mmol/L Carbon Dioxide 20 L (22-30) mmol/L BUN 61 H (9-20) mg/dL Creatinine 2.26 H (0.66-1.25) mg/dL Glucose 103 H (74-99) mg/dL POC Glucose (mg/dL) 100 H (75-99) mg/dL Magnesium 2.4 H (1.6-2.3) mg/dL Troponin I (0.000-0.034) ng/mL Assessment and Plan Plan: Assessment: 1. Acute kidney injury secondary to contrast-induced acute kidney injury and hemodynamic instability. Patient received IV contrast dye on July 27 and July 30. Creatinine peaked at 2.56 this admission and is 2.26 today. 2. Chronic kidney disease stage III with baseline creatinine near 1.6 secondary to nephrosclerosis. No hydronephrosis noted on kidney ultrasound. No proteinuria on UA. 3. Metabolic acidosis secondary to acute kidney injury and IV fluids. 4. Hyponatremia secondary to acute kidney injury. 5. Chronic systolic CHF with ejection fraction of less than 20%. 6. Moderate pulmonary hypertension. 7. Insulin-dependent diabetes mellitus. Plan: Add oral sodium bicarbonate. Hold off on diuretics. Avoid nephrotoxins. Repeat electrolytes in the morning.
--- NOTE | 2019-08-01 12:03 | P.PN ---
Subjective Progress Note Date: 08/01/19 This is a pleasant 78-year-old -[place] gentleman admitted to the hospital with CVA, subsequent left-sided weakness, and abnormal troponin. He has a history of hypertension, diabetes, hyperlipidemia, nonischemic cardiomyopathy with prior AICD implantation. Patient underwent a cardiac catheterization which revealed mild nonobstructive coronary artery disease. Patient was seen and examined this morning, hemodynamically stable. Complaints of feeling mildly short of breath. Blood pressure 100/60 with a heart rate in the 60s. Sodium 133, potassium 5.2, chloride 101, CO2 20, BUN 61, creatinine 2.2, white blood cell count 10.9, platelet count 211. Objective - Vital Signs Vital signs: Vital Signs Temp 97.7 F 08/01/19 11:15 Pulse 80 08/01/19 11:30 Resp 20 08/01/19 11:15 BP 101/65 08/01/19 11:15 Pulse Ox 100 08/01/19 11:15 Intake & Output 07/31/19 08/01/19 08/01/19 18:59 06:59 18:59 Intake Total 360 366.167 840 Output Total 200 350 375 Balance 160 16.167 465 Weight 125.9 kg Intake: IV 100 600 Sodium Chloride 0.9% 1, 600 000 ml @ 75 mls/hr IV . [id number] [facility] Rx#:[id number] Intake, IV Titration 26.167 Amount Heparin Sod,Pork in 0.45% 26.167 NaCl 25,000 unit In 0.45 % NaCl 1 250ml.bag @ 7. 663 UNITS/KG/HR 10 mls/hr IV .Q24H [facility] Rx#: [id number] Oral 360 240 240 Output: Urine 200 350 275 Emesis 100 Other: # Voids 1 1 # Bowel Movements 1 - Exam PHYSICAL EXAMINATION: GENERAL: 78-year-old -[place] gentleman in no acute distress at the time of my examination HEENT: Head is atraumatic, normocephalic. Pupils equal, round. Sclera anicteric. Conjunctiva are clear. Mucous membranes of the mouth are moist. Neck is supple. There is no elevated jugular venous pressure. No Carotid bruit is heard. HEART EXAMINATION: Heart S1, S2 normal. No murmur or gallop heard. CHEST EXAMINATION: Lungs are clear with mild diminished air entry to the bases bilaterally . No chest wall tenderness is noted on palpation or with deep breathing. ABDOMEN: Soft, nontender. Bowel sounds are heard. No organomegaly noted. EXTREMITIES: 2+ peripheral pulses with no evidence of peripheral edema and no calf tenderness noted. NEUROLOGIC patient is awake, alert and oriented 3. . - Labs CBC & Chem 7: 08/01/19 05:41 08/01/19 05:41 Labs: Abnormal Lab Results - Last 24 Hours (Table) 07/31/19 07/31/19 07/31/19 Range/Units 16:24 18:06 18:06 WBC 11.0 H (3.8-10.6) k/uL RBC 5.94 H (4.30-5.90) m/uL Monocytes # (0-1.0) k/uL Sodium (137-145) mmol/L Potassium (3.5-5.1) mmol/L Chloride (98-107) mmol/L Carbon Dioxide (22-30) mmol/L BUN (9-20) mg/dL Creatinine (0.66-1.25) mg/dL Glucose (74-99) mg/dL POC Glucose (mg/dL) 145 H (75-99) mg/dL Magnesium (1.6-2.3) mg/dL Troponin I 3.100 H* (0.000-0.034) ng/mL 07/31/19 07/31/19 07/31/19 Range/Units 18:06 19:45 21:14 WBC (3.8-10.6) k/uL RBC (4.30-5.90) m/uL Monocytes # (0-1.0) k/uL Sodium 134 L (137-145) mmol/L Potassium (3.5-5.1) mmol/L Chloride 95 L (98-107) mmol/L Carbon Dioxide (22-30) mmol/L BUN 57 H (9-20) mg/dL Creatinine 2.56 H (0.66-1.25) mg/dL Glucose 144 H (74-99) mg/dL POC Glucose (mg/dL) 199 H 232 H (75-99) mg/dL Magnesium (1.6-2.3) mg/dL Troponin I (0.000-0.034) ng/mL 08/01/19 08/01/19 08/01/19 Range/Units 05:41 05:41 06:06 WBC 10.9 H (3.8-10.6) k/uL RBC (4.30-5.90) m/uL Monocytes # 1.2 H (0-1.0) k/uL Sodium 133 L (137-145) mmol/L Potassium 5.2 H (3.5-5.1) mmol/L Chloride (98-107) mmol/L Carbon Dioxide 20 L (22-30) mmol/L BUN 61 H (9-20) mg/dL Creatinine 2.26 H (0.66-1.25) mg/dL Glucose 103 H (74-99) mg/dL POC Glucose (mg/dL) 100 H (75-99) mg/dL Magnesium 2.4 H (1.6-2.3) mg/dL Troponin I (0.000-0.034) ng/mL 08/01/19 Range/Units 11:45 WBC (3.8-10.6) k/uL RBC (4.30-5.90) m/uL Monocytes # (0-1.0) k/uL Sodium (137-145) mmol/L Potassium (3.5-5.1) mmol/L Chloride (98-107) mmol/L Carbon Dioxide (22-30) mmol/L BUN (9-20) mg/dL Creatinine (0.66-1.25) mg/dL Glucose (74-99) mg/dL POC Glucose (mg/dL) 137 H (75-99) mg/dL Magnesium (1.6-2.3) mg/dL Troponin I (0.000-0.034) ng/mL Assessment and Plan Plan: Assessment and plan #1 CVA #2 normal troponin, cardiac catheterization did not reveal any significantly obstructive coronary artery disease #3 nonischemic cardiomyopathy with prior AICD #4 diabetes #5 hypertension #6 hyperlipidemia Plan We will repeat chest x-ray today, we will also give the patient one time dose of IV Lasix. DNP note has been reviewed, I agree with a documented findings and plan of care. Patient was seen and examined.
[2019-08-01] MEDS: SODIUM BICARBONATE TAB 650 MG TAB PO SCH ×2 (13:00→20:18)
--- NOTE | 2019-08-01 13:47 | XR ---
EXAMINATION TYPE: XR chest 2V DATE OF EXAM: 08/01/2019 COMPARISON: 07/28/2019 HISTORY: 78-year-old male follow-up CHF TECHNIQUE: PA and lateral views FINDINGS: Heart remains moderately enlarged. Left anterior chest wall AICD generator with right atrial, right v entricular, and coronary sinus leads. Mild interstitial prominence remains, not significantly changed from prior. No consolidation or pleural effusion. IMPRESSION: Moderate cardiomegaly. Similar exam, possible mild cephalization of the vasculature. No pulmonary fransisco
[2019-08-01 16:32] LABS: Glucose,Whole Blood 173 mg/dL (75-99)
[2019-08-01] MEDS: METOPROLOL SUCCINATE (ER) 25 MG TAB.ER.24H PO SCH (19:38)
--- NOTE | 2019-08-01 20:13 | P.PN ---
Progress Note - Text Progress Note Date: 08/01/19 Chief Complaint: left-sided weakness History of presenting complaint: This is a 78-year-old patient being followed by Dr. Morgan. Manager Ct is Dr. Longoria. Chronic stable medical conditions include diabetes mellitus type 2, hyperlipidemia, hypertension, BPH,. Has ejection fraction of 20% and has an AICD for nonsustained V. tach. Also being followed by Dr. towboat pilot Dr. metcalf. Patient yesterday developed weakness on the left side both arm and leg swelling of the speech no change in swallowing. No headache. Patient ER also found to have a troponin of 7. There was no chest pain. Patient for 1 week have been progressively increasing shortness of breath before with Dr. Longoria. Especially has orthopnea. No swelling of the lower extremity. Since yesterday some improvement in the weakness on the left side in speech is started to improve. Symptoms started at 9:15 in the morning. Patient started on IV heparin the ER. Cardiac catheterization in 2017 showed normal coronaries. GLORIA in 2017 also had shown moderate mitral regurgitation with EF of 15-20% Admitted with-acute stroke, acute FL. Patient also short of breath put on IV Lasix. Did have contrast-induced nephropathy with creatinine going up. Today-feeling better. Left-sided weakness has been better. Speech is improved. Blood pressures running low. Accu-Cheks on the lower side.. Review of systems: Was done for constitutional, cardiovascular, GI, pulmonary. relevant finding as above Active Medications Albuterol Sulfate (Ventolin Nebulized) 2.5 mg INHALATION RT-QID [facility] Last Admin: 08/01/19 19:53 Dose: 2.5 mg Documented by: Alprazolam (Xanax) 0.25 mg PO Q6HR PRN PRN Reason: Mild Anxiety Alprazolam (Xanax) 0.5 mg PO Q6HR PRN PRN Reason: Moderate Anxiety Aspirin (Aspirin) 81 mg PO DAILY [facility] Last Admin: 08/01/19 08:57 Dose: 81 mg Documented by: Atorvastatin Calcium (Lipitor) 40 mg PO HS [facility] Last Admin: 07/31/19 19:39 Dose: Not Given Documented by: Famotidine (Pepcid) 20 mg PO DAILY [facility] Last Admin: 08/01/19 08:57 Dose: 20 mg Documented by: Insulin Aspart (Novolog) 0 unit SQ ACHS [facility]; Protocol Last Admin: 08/01/19 18:00 Dose: 2 unit Documented by: Insulin Aspart (Novolog) 10 unit SQ AC-TID [facility] Insulin Detemir (Levemir) 70 unit SQ DAILY@0700 [facility] Metoprolol Succinate (Toprol Xl) 12.5 mg PO DAILY [facility] Miscellaneous Information (Rx Info: Iv Contrast Was Given) 1 each MISCELLANE DAILY PRN PRN Reason: Per Protocol Stop: 08/02/19 21:05 Nitroglycerin (Nitrostat) 0.4 mg SUBLINGUAL Q5M PRN PRN Reason: Chest Pain Sodium Bicarbonate (Sodium Bicarbonate Tab) 650 mg PO BID [facility] Last Admin: 08/01/19 13:00 Dose: 650 mg Documented by: Physical examination: VITAL SIGNS: 97.5, 63, 20, 89/49, 94% on 2 L GENERAL:sitting on the chair, comfortable EYES: Pupils equal. Conjunctiva normal. HEENT: External appearance of nose and ears normal, oral cavity grossly normal. NECK: JVD possibly raised masses not palpable. HEART: First and second heart sounds are normal; no edema. LUNGS: Respiratory rate increased; clear to auscultation. ABDOMEN: Soft, nontender, liver spleen not palpable, no masses palpable. PSYCH: Alert and oriented x3; mood and affect normal. NEUROLOGICAL: Left facial weakness, power in the left arm and left leg 4/5, dysarthria.-Much improved INVESTIGATIONS, reviewed in the clinical context: Potassium potassium 5.2 bun 50 creatinine 2.26 Prior testing White count 11.2 hemoglobin 40.4 platelets 276 potassium 4.5 bun 27 creatinine 1.66 Troponin I 7.0, 5.7, 5.0 EKG tracing personally reviewed by me-ventricular paced rhythm with PVCs Chest x-ray film personally reviewed by me-severe cardiomegaly, with some venous prominence Computed tomography scan of the brain-nothing acute, some age-related atrophy CT angiogram of the brain-negative 2-D echocardiogram-moderate concentric left ventricular hypertrophy, EF less than 20%, no apical thrombus VQ scan-negative for PE renal ultrasound-unremarkable Assessment: -Acute non-ST elevation myocardial infarction, likely silent FL given a diabetic, POA -Acute stroke, affecting the left side with hemiparesis, dysarthria, with continued improvement -Acute kidney injury likely contrast induced and patient is on diuretics. 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 Give some gentle hydration for a few hours. Kidney function started to improve. Cozaar was discontinued. Repeat labs in the morning. --
[2019-08-01] MEDS ORDERED: SODIUM CHLORIDE 0.9% 1,000 ML IV SCH (20:15)
[2019-08-01] MEDS: ATORVASTATIN 40 MG TAB PO SCH (20:18)
[2019-08-01 20:20] LABS: Glucose,Whole Blood 204 mg/dL (75-99)
[2019-08-02 05:15] LABS: Basophils # (A) 0.1 k/uL (0-0.2); Basophils % (A) 1 %; Eosinophils # (A) 0.3 k/uL (0-0.7); Eosinophils % (A) 3 %; HCT 44.5 % (39.0-53.0); HGB 14.4 gm/dL (13.0-17.5); Lymphocytes # (A) 1.5 k/uL (1.0-4.8); Lymphocytes % (A) 15 %; MCH 27.3 pg (25.0-35.0); MCHC 32.3 g/dL (31.0-37.0); MCV 84.4 fL (80.0-100.0); Mean Platelet Volume 9.2; Monocytes # (A) 0.9 k/uL (0-1.0); Monocytes % (A) 10 %; Neutrophils # (A) 6.8 k/uL (1.3-7.7); Neutrophils % (A) 69 %; Platelet Count 242 k/uL (150-450); RBC 5.27 m/uL (4.30-5.90); RDW 14.3 % (11.5-15.5); WBC 9.7 k/uL (3.8-10.6)
[2019-08-02 05:29] LABS: Calcium 9.1 mg/dL (8.4-10.2); Magnesium 2.4 mg/dL (1.6-2.3); Potassium 4.5 mmol/L (3.5-5.1)
[2019-08-02 06:20] LABS: Glucose,Whole Blood 78 mg/dL (75-99)
[2019-08-02] MEDS: ALBUTEROL NEBULIZED 2.5 MG/3 ML INHALATION SCH ×2 (06:59→11:10)
[2019-08-02] MEDS ORDERED: INSULIN DETEMIR (LEVEMIR) 100 UNIT/ML SYR SQ SCH ×2 (07:00→21:00)
[2019-08-02] MEDS: INSULIN ASPART (NovoLOG) 100 UNIT/ML VIAL SQ SCH ×4 (07:01→11:42)
[2019-08-02 08:21] VITALS: RESP 20
[2019-08-02] MEDS ORDERED: FUROSEMIDE 40 MG TAB PO SCH (09:00)
[2019-08-02] MEDS ORDERED: METOPROLOL SUCCINATE (ER) 25 MG TAB.ER.24H PO SCH (09:00)
[2019-08-02] MEDS: ASPIRIN 81 MG PO SCH (09:06)
[2019-08-02] MEDS: FAMOTIDINE 20 MG TAB PO SCH (09:06)
[2019-08-02] MEDS: SODIUM BICARBONATE TAB 650 MG TAB PO SCH (09:06)
--- NOTE | 2019-08-02 09:22 | PN ---
PROGRESS NOTE Mr. Gaviria has nonischemic cardiomyopathy, previous history of CVA. He has also had underlying CKD. With some IV Lasix yesterday he felt better, his breathing easier. Creatinine is down. I will put him on p.o. Lasix 40 mg daily. Because of significant hyperkalemia, we are avoiding PEE and ARB in this patient. Plan is to increase activity. Continue all his other medications and plan for discharge today. Vitals are stable. JVD 1 cm, no carotid bruit. S1, S2 heard normally, short systolic murmur. Lungs revealed decent air entry, improved breath sounds. Abdomen and lower extremity exam unchanged. Edema has improved. Right radial cath site is clean and dry with a good pulse. Plan is to continue current medications, increase activity. Plan for discharge today. MMODL / IJN: [id number] /
--- NOTE | 2019-08-02 09:46 | P.PN ---
Subjective Patient is seen in follow-up for acute kidney injury on chronic kidney disease. Renal function is improving. Creatinine 1.93 this morning. Patient underwent coronary angiogram on July 30 which was normal. He has been voiding. Denies chest pain or shortness of breath. Vital signs are stable. General: The patient appeared well nourished and normally developed. HEENT: Head exam is unremarkable. Neck is without jugular venous distension. LUNGS: Lungs are clear to auscultation and percussion. Breath sounds decreased. HEART: Rate and Rhythm are regular. First and second heart sounds normal. No murmurs, rubs or gallops. ABDOMEN: Abdominal exam reveals normal bowel sounds. Non-tender and non- distended. No evidence of peritonitis. EXTREMITITES: No clubbing, cyanosis, or edema. Objective - Vital Signs Vital signs: Vital Signs Temp 97.7 F 08/02/19 08:05 Pulse 88 08/02/19 08:05 Resp 20 08/02/19 08:05 BP 100/70 08/02/19 08:05 Pulse Ox 94 L 08/02/19 08:05 Intake & Output 08/01/19 08/02/19 08/02/19 18:59 06:59 18:59 Intake Total 1800 120 Output Total 775 440 Balance 1025 -440 120 Weight 129.1 kg Intake: IV 600 Sodium Chloride 0.9% 1, 600 000 ml @ 75 mls/hr IV . [id number] [facility] Rx#:[id number] Oral 1200 120 Output: Urine 675 440 Emesis 100 Other: Voiding Method Toilet Urinal # Voids 1 - Labs CBC & Chem 7: 08/02/19 04:21 08/02/19 04:21 Labs: Abnormal Lab Results - Last 24 Hours (Table) 08/01/19 08/01/19 08/01/19 Range/Units 11:45 16:30 20:19 Sodium (137-145) mmol/L BUN (9-20) mg/dL Creatinine (0.66-1.25) mg/dL Glucose (74-99) mg/dL POC Glucose (mg/dL) 137 H 173 H 204 H (75-99) mg/dL Magnesium (1.6-2.3) mg/dL 08/02/19 Range/Units 04:21 Sodium 136 L (137-145) mmol/L BUN 58 H (9-20) mg/dL Creatinine 1.93 H (0.66-1.25) mg/dL Glucose 61 L (74-99) mg/dL POC Glucose (mg/dL) (75-99) mg/dL Magnesium 2.4 H (1.6-2.3) mg/dL Assessment and Plan Plan: Assessment: 1. Acute kidney injury secondary to contrast-induced acute kidney injury and hemodynamic instability. Patient received IV contrast dye on July 27 and July 30. Creatinine peaked at 2.56 this admission and is 1.93 today. 2. Chronic kidney disease stage III with baseline creatinine near 1.6 secondary to nephrosclerosis. No hydronephrosis noted on kidney ultrasound. No prote inuria on UA. 3. Metabolic acidosis secondary to acute kidney injury and IV fluids. Better. Maintained on oral sodium bicarbonate. 4. Hyponatremia secondary to acute kidney injury. Better. 5. Chronic systolic CHF with ejection fraction of less than 20%. 6. Moderate pulmonary hypertension. 7. Insulin-dependent diabetes mellitus. Plan: Lasix 40 mg once daily resumed today. Avoid nephrotoxins. Repeat electrolytes in the morning.
[2019-08-02 11:39] LABS: Glucose,Whole Blood 95 mg/dL (75-99)
[2019-08-02 11:45] VITALS: BP 101/55; PULSE 78; TEMP 98
--- NOTE | 2019-08-02 21:44 | P.DS ---
Providers Date of admission: 07/28/19 17:27 Expected date of discharge: 08/02/19 Attending physician: Chase Shook Consults: 07/28/19 17:28 Consult Physician Routine Consulting Provider: [facility] Consult Reason/Comments: Non-STEMI Do you want consulting provider notified?: Yes Consult Physician Routine Consulting Provider: Joan Dudley Consult Reason/Comments: CVA Do you want consulting provider notified?: Yes 07/29/19 19:57 Consult Physician Routine Consulting Provider: Ingris Raza Consult Reason/Comments: ckd Do you want consulting provider notified?: Yes 07/31/19 12:53 Consult Physician Routine Consulting Provider: Mickey Simon Consult Reason/Comments: Left sided weakness potentially inpatient rehab candidate. Do you want consulting provider notified?: Yes Primary care physician: Srinath Layton Hospital Course: Chief Complaint: left-sided weakness History of presenting complaint: This is a 78-year-old patient being followed by Dr. Morgan. Mechanical Engineering Officer is Dr. Longoria. Chronic stable medical conditions include diabetes mellitus type 2, hyperlipidemia, hypertension, BPH,. Has ejection fraction of 20% and has an AICD for nonsustained V. tach. Also being followed by Dr. quartz mounter Dr. metcalf. Patient yesterday developed weakness on the left side both arm and leg swelling of the speech no change in swallowing. No headache. Patient ER also found to have a troponin of 7. There was no chest pain. Patient for 1 week have been progressively increasing shortness of breath before with Dr. Longoria. Especially has orthopnea. No swelling of the lower extremity. Since yesterday some improvement in the weakness on the left side in speech is started to improve. Symptoms started at 9:15 in the morning. Patient started on IV heparin the ER. Cardiac catheterization in 2017 showed normal coronaries. GLORIA in 2017 also had shown moderate mitral regurgitation with EF of 15-20% Admitted with-acute stroke, acute RI. Patient also short of breath put on IV Lasix. Did have contrast-induced nephropathy with creatinine going up. Left- sided weakness speech greatly improved. Seen by physical therapy. Okay to go home. Creatinine jumped from 1.66-2.56. Coming down. Today 1.93 Today-discussed with patient. Question answered. Cleared by consultants to go home. Discussion and discharge planning more than 35 minutes Consultants: Dr. Oliva from nephrology [facility] Physical examination: VITAL SIGNS: 98, 78, 20, 101/55, 99% on room air GENERAL:sitting on the chair, comfortable EYES: Pupils equal. Conjunctiva normal. HEENT: External appearance of nose and ears normal, oral cavity grossly normal. NECK: JVD possibly raised masses not palpable. HEART: First and second heart sounds are normal; no edema. LUNGS: Respiratory rate increased; clear to auscultation. ABDOMEN: Soft, nontender, liver spleen not palpable, no masses palpable. PSYCH: Alert and oriented x3; mood and affect normal. NEUROLOGICAL: Left facial weakness, power in the left arm and left leg 4/5, dysarthria.-Significantly improved INVESTIGATIONS, reviewed in the clinical context: Percussion 4.5 creatinine 1.93 Prior testing White count 11.2 hemoglobin 40.4 platelets 276 potassium 4.5 bun 27 creatinine 1.66 Troponin I 7.0, 5.7, 5.0 EKG tracing personally reviewed by me-ventricular paced rhythm with PVCs Chest x-ray film personally reviewed by me-severe cardiomegaly, with some venous prominence Computed tomography scan of the brain-nothing acute, some age-related atrophy CT angiogram of the brain-negative 2-D echocardiogram-moderate concentric left ventricular hypertrophy, EF less than 20%, no apical thrombus VQ scan-negative for PE renal ultrasound-unremarkable Assessment: -Acute non-ST elevation myocardial infarction, likely silent RI given a diabetic, POA -Acute stroke, affecting the left side with hemiparesis, dysarthria, with continued improvement -Acute kidney injury likely contrast induced and patient is on diuretics. 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 Disposition: Home Patient Condition at Discharge: Stable Plan - Discharge Summary Discharge Rx Participant: No New Discharge Prescriptions: New Aspirin 81 mg PO DAILY #30 chew Atorvastatin [Lipitor] 40 mg PO HS #30 tab Sodium Bicarbonate Tab 650 mg PO BID #60 tab Metoprolol Succinate (ER) [Toprol XL] 12.5 mg PO DAILY #30 tab.er.24h Continue Spironolactone 12.5 mg PO DAILY #90 tablet Insulin Aspart [NovoLOG Flexpen] 10 units SQ AC-LUNCH Changed Furosemide [Lasix] 40 mg PO BID #60 Insulin Detemir [Levemir Flextouch] 50 units SQ DAILY #0 Insulin Aspart [NovoLOG Flexpen] 10 units SQ AC-BRKFST #0 Insulin Aspart [NovoLOG Flexpen] 10 units SQ AC-SUPPER #0 Discontinued Losartan [Cozaar] 12.5 mg PO DAILY #90 tab Metolazone [Zaroxolyn] 2.5 mg PO Q48H Discharge Medication List Spironolactone 12.5 mg PO DAILY #90 tablet 03/14/19 [Rx] Insulin Aspart [NovoLOG Flexpen] 10 units SQ AC-LUNCH 07/28/19 [History] Aspirin 81 mg PO DAILY #30 chew 08/02/19 [Rx] Atorvastatin [Lipitor] 40 mg PO HS #30 tab 08/02/19 [Rx] Furosemide [Lasix] 40 mg PO BID #60 08/02/19 [Rx] Insulin Aspart [NovoLOG Flexpen] 10 units SQ AC-BRKFST #0 08/02/19 [Rx] Insulin Aspart [NovoLOG Flexpen] 10 units SQ AC-SUPPER #0 08/02/19 [Rx] Insulin Detemir [Levemir Flextouch] 50 units SQ DAILY #0 08/02/19 [Rx] Metoprolol Succinate (ER) [Toprol XL] 12.5 mg PO DAILY #30 tab.er.24h 08/02/19 [Rx] Sodium Bicarbonate Tab 650 mg PO BID #60 tab 08/02/19 [Rx] Follow up Appointment(s)/Referral(s): Sean Osman MD [STAFF PHYSICIAN] - 08/16/19 3:00 pm (Thursday) Srinath Morgan DO [Primary Care Provider] - 08/11/19 11:30 am () Patient Instructions/Handouts: *Surgery [facility] - After Heart Catheterization - Senior Manager [employer] Instructions Activity/Diet/Wound Care/Special Instructions: BMP-5 days Discharge Disposition: HOME SELF-CARE
== END 2019-08-02 16:03 | disposition home or self-care (01) | DRG 64 ==
LOC: EC 15:02 → 3SCARD 17:27
PROVIDERS: ADMIT Hospitalist; ATTEND Hospitalist
PROC: B2111ZZ Fluoroscopy of Multiple Coronary Arteries using Low Osmolar Contrast (ICD-10-PCS; principal; 2019-07-31 19:41)
DX: I63.9 Cerebral infarction, unspecified (principal); I21.4 Non-ST elevation (NSTEMI) myocardial infarction; G81.94 Hemiplegia, unspecified affecting left nondominant side; I50.22 Chronic systolic (congestive) heart failure; I13.0 Hypertensive heart and chronic kidney disease with heart failure and stage 1 through stage 4 chronic kidney disease, or unspecified chronic kidney disease; I42.0 Dilated cardiomyopathy; N17.9 Acute kidney failure, unspecified; E87.1 Hypo-osmolality and hyponatremia; E87.2 Acidosis; N18.3 Chronic kidney disease, stage 3 (moderate); N40.0 Benign prostatic hyperplasia without lower urinary tract symptoms; E11.22 Type 2 diabetes mellitus with diabetic chronic kidney disease; F32.9 Major depressive disorder, single episode, unspecified; R47.81 Slurred speech; E78.5 Hyperlipidemia, unspecified; I27.29 Other secondary pulmonary hypertension; E66.9 Obesity, unspecified; I25.10 Atherosclerotic heart disease of native coronary artery without angina pectoris; R40.2363 Coma scale, best motor response, obeys commands, at hospital admission; R40.2143 Coma scale, eyes open, spontaneous, at hospital admission; R40.2253 Coma scale, best verbal response, oriented, at hospital admission; T50.8X5A Adverse effect of diagnostic agents, initial encounter; I34.0 Nonrheumatic mitral (valve) insufficiency; Z79.899 Other long term (current) drug therapy; Z68.37 Body mass index [BMI] 37.0-37.9, adult; Z79.4 Long term (current) use of insulin; Z88.8 Allergy status to other drugs, medicaments and biological substances; Z95.810 Presence of automatic (implantable) cardiac defibrillator; Z98.890 Other specified postprocedural states; Z87.891 Personal history of nicotine dependence; Z82.49 Family history of ischemic heart disease and other diseases of the circulatory system; I25.2 Old myocardial infarction
CPT/HCPCS: 36415; 70450; 70496; 70498; 71046; 76770; 78582; 80048; 80053; 80061; 81001; 82550; 82553; 83036; 83735; 84484; 85025; 85610; 85730; 93005; 93306; 93454; 93970; 94640; 96374; 99291

== ENCOUNTER 2019-10-04 10:28 | Emergency (ER) | payer MEDICARE ==
[2019-10-04 10:34] VITALS: TEMP 97.4
[2019-10-04] MEDS ORDERED: SODIUM CHLORIDE 0.9% 1,000 ML IV STA (11:05)
[2019-10-04] MEDS ORDERED: PANTOPRAZOLE 40 MG/10 ML VIAL IVP STA (11:05)
[2019-10-04] MEDS ORDERED: ONDANSETRON 4 MG/2 ML VIAL IVP STA (11:05)
--- NOTE | 2019-10-04 11:09 | ED ---
Abdominal Pain HPI - General Chief Complaint: Abdominal Pain Stated Complaint: vomiting Time Seen by Provider: 10/04/19 10:39 Source: patient Mode of arrival: wheelchair Limitations: no limitations - History of Present Illness Initial Comments: Patient is 79-year-old diabetic male presenting to emergency Department with chief complaint of abdominal pain. States he has not had a bowel movement approximately 3 weeks. He does report some abdominal discomfort in the left lower right lower quadrant. States he attempted using a stool softeners which h elped him have a small bowel movement but stopped using them soon afterward. Denies using any laxatives. States about 2 weeks ago he developed nausea with occasional nonbilious, nonbloody vomiting. States his abdomen feels bloated and slightly distended. States over the last few days is also developed obstructive urinary tract symptoms. He does report shortness of breath but states that is his baseline. Denies any chest pain at this time. Denies previous abdominal surgeries. Denies any testicular pain or tenderness, penile discharge. Denies hematuria, hematochezia or melena. Denies any diarrhea. He reports no previous history of obstruction. Denies any use of narcotics. - Related Data Home Medications Medication Instructions Recorded Confirmed Insulin Aspart [NovoLOG Flexpen] 10 units SQ AC-LUNCH 07/28/19 07/28/19 Previous Rx's Medication Instructions Recorded Spironolactone 12.5 mg PO DAILY #90 tablet 03/14/19 Aspirin 81 mg PO DAILY #30 chew 08/02/19 Atorvastatin [Lipitor] 40 mg PO HS #30 tab 08/02/19 Furosemide [Lasix] 40 mg PO BID #60 08/02/19 Insulin Aspart [NovoLOG Flexpen] 10 units SQ AC-BRKFST #0 08/02/19 Insulin Aspart [NovoLOG Flexpen] 10 units SQ AC-SUPPER #0 08/02/19 Insulin Detemir [Levemir Flextouch] 50 units SQ DAILY #0 08/02/19 Metoprolol Succinate (ER) [Toprol 12.5 mg PO DAILY #30 tab.er.24h 08/02/19 XL] Sodium Bicarbonate Tab 650 mg PO BID #60 tab 08/02/19 Sulfamethox-Tmp 800-160Mg [Bactrim 1 each PO Q12HR #20 tab 10/04/19 Ds] Allergies Allergy/AdvReac Type Severity Reaction Status Date / Time liraglutide [From Victoza] Allergy Rash/Hives Verified 10/04/19 10:34 Review of Systems ROS Statement: Those systems with pertinent positive or pertinent negative responses have been documented in the HPI. ROS Other: All systems not noted in ROS Statement are negative. Past Medical History Past Medical History: Diabetes Mellitus, Hyperlipidemia, Hypertension, Prostate Disorder Additional Past Medical History / Comment(s): AICD., SEE DR GRAMAJO H&P History of Any Multi-Drug Resistant Organisms: None Reported Past Surgical History: AICD, Back Surgery, Heart Catheterization Additional Past Surgical History / Comment(s): ANGIOGRAM, HEART CATH (07/2016), AICD [employer] (02/2017) Past Anesthesia/Blood Transfusion Reactions: No Reported Reaction Type of Cardiac Device: AICD Device Placement Date:: 02/09/2017 Past Psychological History: No Psychological Hx Reported Smoking Status: Former smoker Past Alcohol Use History: None Reported Past Drug Use History: None Reported - Past Family History Mother Family Medical History: No Reported History Father Family Medical History: No Reported History Brother(s) Family Medical History: Deep Vein Thrombosis (DVT) General Exam Limitations: no limitations General appearance: alert, in no apparent distress Head exam: Present: atraumatic, normocephalic, normal inspection Eye exam: Present: normal appearance, PERRL, EOMI Pupils: Present: normal accommodation ENT exam: Present: normal exam, normal oropharynx, mucous membranes dry Neck exam: Present: normal inspection, full ROM Respiratory exam: Present: normal lung sounds bilaterally. Absent: respiratory distress, wheezes, rales Cardiovascular Exam: Present: regular rate, normal rhythm, normal heart sounds GI/Abdominal exam: Present: soft, distended (Mild distention), normal bowel sounds. Absent: tenderness, guarding, rebound, rigid, hyperactive bowel sounds Extremities exam: Present: normal inspection, full ROM Back exam: Present: normal inspection, full ROM Neurological exam: Present: alert, oriented X3 Psychiatric exam: Present: normal affect, normal mood Skin exam: Present: warm, dry, intact, normal color Course Vital Signs 10/04/19 10/04/19 10/04/19 10:29 12:32 13:34 Temperature 97.4 F L 97.4 F L Pulse Rate 89 93 99 Respiratory 18 18 16 Rate Blood Pressure 124/85 116/97 114/88 O2 Sat by Pulse 100 99 97 Oximetry Medical Decision Making - Medical Decision Making Patient is a 79-year-old male presenting to the emergency department with a chief complaint of abdominal pain. Occasional nausea vomiting with no bowel movement in approximately 2 weeks. CBC is unremarkable. CMP and UA shows dehydration. Patient was given antiemetics and fluids. UA does show signs of urinary tract infection and other leukocyte esterase and white blood cells. Patient will be started on Rocephin in the ED and discharged with Bactrim. CT of abdomen and pelvis shows no acute processes. Patient was offered an enema but he declined. Patient was given lactulose in the ED. He was advised to drink prune juice and [id number] MiraLAX to help with the constipation symptoms. States she has an appointment to see his primary care today. Return parameters thoroughly discussed the patient was understanding and agreeable. Case discussed with physician. - Lab Data Result diagrams: 10/04/19 10:53 10/04/19 10:53 Lab Results 10/04/19 10/04/19 10/04/19 Range/Units 10:53 10:53 11:20 WBC 9.0 (3.8-10.6) k/uL RBC 5.46 (4.30-5.90) m/uL Hgb 15.2 (13.0-17.5) gm/dL Hct 47.7 (39.0-53.0) % MCV 87.2 (80.0-100.0) fL MCH 27.8 (25.0-35.0) pg MCHC 31.9 (31.0-37.0) g/dL RDW 15.2 (11.5-15.5) % Plt Count 224 (150-450) k/uL Neutrophils % 69 % Lymphocytes % 19 % Monocytes % 7 % Eosinophils % 4 % Basophils % 1 % Neutrophils # 6.2 (1.3-7.7) k/uL Lymphocytes # 1.7 (1.0-4.8) k/uL Monocytes # 0.7 (0-1.0) k/uL Eosinophils # 0.3 (0-0.7) k/uL Basophils # 0.1 (0-0.2) k/uL Hypochromasia Slight Sodium 140 (137-145) mmol/L Potassium 4.5 (3.5-5.1) mmol/L Chloride 106 (98-107) mmol/L Carbon Dioxide 19 L (22-30) mmol/L Anion Gap 15 mmol/L BUN 25 H (9-20) mg/dL Creatinine 1.28 H (0.66-1.25) mg/dL Est GFR (CKD-EPI)AfAm 62 (>60 ml/min/1.73 sqM) Est GFR (CKD-EPI)NonAf 54 (>60 ml/min/1.73 sqM) Glucose 103 H (74-99) mg/dL Calcium 9.8 (8.4-10.2) mg/dL Total Bilirubin 0.9 (0.2-1.3) mg/dL AST 25 (17-59) U/L ALT 14 (4-49) U/L Alkaline Phosphatase 59 (38-126) U/L Total Protein 7.5 (6.3-8.2) g/dL Albumin 3.7 (3.5-5.0) g/dL Amylase 51 (30-110) U/L Lipase 88 (23-300) U/L Urine Color Yellow Urine Appearance Cloudy (Clear) Urine pH 5.5 (5.0-8.0) Ur Specific [place] 1.030 (1.001-1.035) Urine Protein 1+ H (Negative) Urine Glucose (UA) Negative (Negative) Urine Ketones 2+ H (Negative) Urine Blood Small H (Negative) Urine Nitrite Negative (Negative) Urine Bilirubin 1+ H (Negative) Urine Urobilinogen 4.0 (<2.0) mg/dL Ur Leukocyte Esterase Large H (Negative) Urine RBC 16 H (0-5) /hpf Urine WBC 116 H (0-5) /hpf Ur Squamous Epith Cells 2 (0-4) /hpf Urine Mucus Rare H (None) /hpf - EKG Data EKG Comments: Ventricular paced rhythm with occasional PVC Ventricular rate 95, LA 180, QRS 114, QTc 542. Disposition Clinical Impression: Abdominal pain, Urinary tract infection Disposition: HOME SELF-CARE Condition: Stable Instructions (If sedation given, give patient instructions): Abdominal Pain (ED) Additional Instructions: Take prune juice or [id number] MiraLAX. Follow up with primary care. Return to emergency department if symptoms worsen. Take prescribed medication as directed. Is patient prescribed a controlled substance at d/c from ED?: No Referrals: Srinath Morgan DO [Primary Care Provider] - 1-2 days Time of Disposition: 13:07
[2019-10-04 11:22] LABS: Basophils # (A) 0.1 k/uL (0-0.2); Basophils % (A) 1 %; Eosinophils # (A) 0.3 k/uL (0-0.7); Eosinophils % (A) 4 %; HCT 47.7 % (39.0-53.0); HGB 15.2 gm/dL (13.0-17.5); Hypochromasia Slight; Lymphocytes # (A) 1.7 k/uL (1.0-4.8); Lymphocytes % (A) 19 %; MCH 27.8 pg (25.0-35.0); MCHC 31.9 g/dL (31.0-37.0); MCV 87.2 fL (80.0-100.0); Mean Platelet Volume 9.6; Monocytes # (A) 0.7 k/uL (0-1.0); Monocytes % (A) 7 %; Neutrophils # (A) 6.2 k/uL (1.3-7.7); Neutrophils % (A) 69 %; Platelet Count 224 k/uL (150-450); RBC 5.46 m/uL (4.30-5.90); RDW 15.2 % (11.5-15.5)
[2019-10-04 11:38] LABS: Appearance,Urine Cloudy (Clear); Bilirubin,Urine 1+ (Negative); Blood,Urine Small (Negative); Color,Urine Yellow; Glucose,Urine (UA) Negative (Negative); Ketones,Urine 2+ (Negative); Leukocyte Esterase,Urine Large (Negative); Mucus,Urine Rare /hpf; Nitrite,Urine Negative (Negative); PH, Urine 5.5 (5.0-8.0); Protein,Urine 1+ (Negative); RBC,Urine 16 /hpf (0-5); Squamous Epithelial Cell,Urine 2 /hpf (0-4); WBC,Urine 116 /hpf (0-5)
[2019-10-04 11:38] LABS: Albumin 3.7 g/dL (3.5-5.0); Calcium 9.8 mg/dL (8.4-10.2); Potassium 4.5 mmol/L (3.5-5.1); Total Bilirubin 0.9 mg/dL (0.2-1.3); Total Protein 7.5 g/dL (6.3-8.2)
--- NOTE | 2019-10-04 12:47 | CT ---
EXAMINATION TYPE: CT abdomen pelvis w con DATE OF EXAM: 10/04/2019 COMPARISON: None INDICATION: bloating, constipation for 3 weeks DLP: 1873.6 mGycm, Automated exposure control for dose reduction was used. CONTRAST: 100 mL of Isovue 300. Study performed without Oral Contrast TECHNIQUE: Axial images were obtained from above the diaphragm to the pubic rami in the axial plane a t 5 mm thick sections. Reconstructed images are reviewed on the computer in the coronal plane. FINDINGS: Limited CT sections are obtained the lung bases. Minimal left pleural effusion is present. Very mini mal right pleural effusion may be present.. CT ABDOMEN: Liver: There is mild fatty infiltration within the liver. Spleen: Normal Pancreas: Normal Adrenal glands: The adrenal glands are normal. Gallbladder: Normal Kidneys: No masses are evident. No hydronephrosis is present. No cysts are present. Delayed images were obtained through the kidneys, which remain unremarkable. Aorta: Vascular calcification is within the aorta. Inferior vena cava: Normal. CT PELVIS: Loops of bowel within the abdomen and pelvis are normal. Study is without oral contrast limiting bowel evaluation. A few scattered diverticuli are present. Appendix: Normal as visualized. Urinary bladder: Decompressed with limited evaluation. Genitourinary structures: Prostate is unremarkable Osseous structures: No suspicious lytic or sclerotic lesions. Facet changes are within the lumbar spi ne IMPRESSIONS: 1. Very small bilateral pleural effusions. 2. No suspicious bowel abnormality to suggest obstruction or fecal retention.
[2019-10-04] MEDS ORDERED: cefTRIAXone IN SWFI 1,000 MG/10 ML SYRINGE IVP STA (12:49)
[2019-10-04] MEDS ORDERED: LACTULOSE 20 GM/30 ML CUP PO ONE (13:06)
[2019-10-04 13:36] VITALS: BP 114/88; PULSE 99; RESP 16
== END 2019-10-04 13:50 | disposition home or self-care (01) ==
LOC: EC 10:28
DX: N39.0 Urinary tract infection, site not specified (principal); E86.0 Dehydration; R06.02 Shortness of breath; E11.9 Type 2 diabetes mellitus without complications; Z79.4 Long term (current) use of insulin; Z95.810 Presence of automatic (implantable) cardiac defibrillator; Z87.891 Personal history of nicotine dependence; Z88.8 Allergy status to other drugs, medicaments and biological substances; Z95.5 Presence of coronary angioplasty implant and graft
CPT/HCPCS: 36415; 93005; 80053; 82150; 83690; 85025; 81001; 87086; 74177; 99284; 96374; 96375 ×2; 96361; J2405; J0696; C9113; Q9967

== ENCOUNTER → 2019-11-24 | Outpatient (CLI) | payer MEDICARE, OTHER ==
[2019-11-24 15:24] LABS: Anisocytosis Slight; HCT 39.9 % (39.0-53.0); HGB 12.5 gm/dL (13.0-17.5); Hypochromasia Slight; MCH 28.3 pg (25.0-35.0); MCHC 31.3 g/dL (31.0-37.0); MCV 90.5 fL (80.0-100.0); Mean Platelet Volume 9.4; Platelet Count 243 k/uL (150-450); RBC 4.41 m/uL (4.30-5.90); RDW 16.8 % (11.5-15.5); WBC 6.6 k/uL (3.8-10.6)
[2019-11-24 23:56] LABS: African American GFR (CKD) 41.2 (60.0-200.0); BUN/Creat Ratio 13.33 Ratio (12.00-20.00); Calcium 9.3 mg/dL (8.7-10.3); Magnesium 1.4 mg/dL (1.5-2.4); Non-African American GFR(CKD) 35.5 (60.0-200.0); Potassium 3.4 mmol/L (3.5-5.5)
[2019-11-25 01:28] LABS: Hemoglobin A1C 5.9 % (4.0-6.0)
== END | disposition home or self-care (01) ==
LOC: LABWHC1 14:27
PROVIDERS: ATTEND Nuclear Medicine Nuclear Cardiology
DX: I42.9 Cardiomyopathy, unspecified (principal)
CPT/HCPCS: 36415; 80048; 83036; 83735; 83880; 84443; 85027